=== PATIENT | female | born 1970 | race Caucasian/White ===

== ENCOUNTER 2016-10-07 11:56 | Emergency (ER) | payer OTHER ==
[2016-10-07 12:21] VITALS: BP 129/81
--- NOTE | 2016-10-07 13:03 | UC ---
Knee Pain HPI - HPI Summary HPI Summary: Pt presents with c/o left knee pain. Pt reports walking down stairs today, ~ 1 -2 hours prior to arrival, slipped fell and had left knee bent "so my heel hit my butt". Pt has history of ACL tear and repair ~ 10-15 years ago. Pt is able to bear minimal weight. - History of Current Complaint Chief Complaint: UCLowerExtremity Stated Complaint: LEFT KNEE PAIN Time Seen by Provider: 10/07/16 12:31 Hx Obtained From: Patient Hx Last Menstrual Period: now ?: No Onset/Duration: Sudden Onset Severity Initially: Moderate Severity Currently: Moderate Character: Dull, Aching Aggravating Factor(s): Movement, Weight Bearing Alleviating Factor(s): Rest, Position, Cold Associated Signs And Symptoms: Positive: Swelling Able to Bear Weight: Yes - minimal - Risk Factors Gout Risk Factor: Age ^ 40 - Allergies/Home Medications Allergies/Adverse Reactions: Allergies Allergy/AdvReac Type Severity Reaction Status Date / Time No Known Allergies Allergy Verified 10/07/16 12:24 Home Medications: Home Medications Ascorbic Acid TAB* [Vitamin C TAB*] 500 mg PO DAILY 10/07/16 [History Confirmed 10/07/16] PMH/Surg Hx/FS Hx/Imm Hx Previously Healthy: Yes - Surgical History Surgical History: Yes Surgery Procedure, Year, and Place: 03/2016-d/c. ACL repair left knee, 10-15 years ago - Family History Known Family History: Positive: Hypertension - Social History Alcohol Use: Occasionally Substance Use Type: None Smoking Status (MU): Former Smoker Review of Systems Constitutional: Negative Skin: Other - sunburned Eyes: Negative ENT: Negative Respiratory: Negative Cardiovascular: Negative Gastrointestinal: Negative Genitourinary: Negative Motor: Decreased ROM - left knee due to pain Neurovascular: Negative Musculoskeletal: Arthralgia, Decreased ROM - left knee, Myalgia Neurological: Negative Psychological: Negative All Other Systems Reviewed And Are Negative: Yes Physical Exam Triage Information Reviewed: Yes Appearance: Well-Appearing Vital Signs: Initial Vital Signs Temp 99.1 F 10/07/16 12:18 Pulse 96 10/07/16 12:18 Resp 14 10/07/16 12:18 BP 129/81 10/07/16 12:18 Pulse Ox 100 10/07/16 12:18 Eye Exam: Normal ENT Exam: Normal Respiratory Exam: Normal Musculoskeletal: Positive: Strength Limited @, ROM Limited @, Edema @ - left knee, negative drawer test, negative valgus and varus, Neurological Exam: Normal Psychological Exam: Normal Skin Exam: Normal Knee Pain Course/Dx - Course Course Of Treatment: I offered the pt a knee immobilizer, crutches, NSAIDS and all denied by pt. I discussed with the pt that I was referring her to Dr. Raygoza for further evaluation by an orthopedic provider and she agreed to plan of care and verbalized understanding. - Differential Dx/Diagnosis Differential Diagnosis/HQI/PQRI: Contusion, Sprain, Strain Provider Diagnoses: left knee sprain Discharge - Discharge Plan Condition: Stable Disposition: HOME Patient Education Materials: Knee Sprain (ED) Forms: *Work Release Referrals: Misael Raygoza MD [Medical Doctor] - Dottie Connor MD [Primary Care Provider] - Additional Instructions: Please follow up with Dr. Raygoza at [address] [place] [phone] for an appointment at 9:30 am on October 08, 2016
== END 2016-10-07 13:05 | disposition home or self-care (01) ==
LOC: UCCORT 11:56
DX: S83.92XA Sprain of unspecified site of left knee, initial encounter (principal); W10.9XXA Fall (on) (from) unspecified stairs and steps, initial encounter; Y93.9 Activity, unspecified; Y92.9 Unspecified place or not applicable; Z87.891 Personal history of nicotine dependence
CPT/HCPCS: 99211; G0463

== ENCOUNTER 2017-01-02 11:24 | Emergency (ER) | payer OTHER ==
[2017-01-02 11:33] VITALS: BP 125/69
--- NOTE | 2017-01-02 11:41 | UC ---
Ear Complaint HPI - HPI Summary HPI Summary: left ear feels clogged for 2 days - History of Current Complaint Chief Complaint: UCEar Stated Complaint: EAR PAIN Time Seen by Provider: 01/02/17 11:31 Hx Obtained From: Patient Hx Last Menstrual Period: 12/18/16 ?: No Onset/Duration: Gradual Onset, Lasting Days Severity Initially: Mild Severity Currently: Mild Pain Intensity: 2 Pain Scale Used: 0-10 Numeric Aggravating Factors: Nothing Alleviating Factors: Nothing - tried water and peroxide at home without relief Associated Signs/Symptoms: Positive: Hearing Loss - Allergies/Home Medications Allergies/Adverse Reactions: Allergies Allergy/AdvReac Type Severity Reaction Status Date / Time Bee Venom Allergy Anaphylatic Verified 01/02/17 11:34 Shock Home Medications: Home Medications Norgestimate-Eth Estradiol(NF) [Ortho Tri-Cyclen (NF)] 1 tab PO DAILY 01/02/17 [ History Confirmed 01/02/17] PMH/Surg Hx/FS Hx/Imm Hx Previously Healthy: Yes - Surgical History Surgical History: Yes Surgery Procedure, Year, and Place: 03/2016-d/c - Family History Known Family History: Positive: Hypertension - Social History Occupation: Employed Full-time Lives: With Family Alcohol Use: Occasionally Substance Use Type: None Smoking Status (MU): Former Smoker - Immunization History Most Recent Influenza Vaccination: 12/2016 Review of Systems Constitutional: Negative Skin: Negative Eyes: Negative ENT: Negative, Ear Ache - Left ear feels clogged Respiratory: Negative Cardiovascular: Negative Gastrointestinal: Negative Genitourinary: Negative Motor: Negative Neurovascular: Negative Musculoskeletal: Negative Neurological: Negative Psychological: Negative Is Patient Immunocompromised?: No All Other Systems Reviewed And Are Negative: Yes Physical Exam Triage Information Reviewed: Yes Appearance: Well-Appearing, No Pain Distress, Well-Nourished Vital Signs: Initial Vital Signs Temp 97.7 F 01/02/17 11:30 Pulse 77 01/02/17 11:30 Resp 16 01/02/17 11:30 BP 125/69 01/02/17 11:30 Pulse Ox 100 01/02/17 11:30 Vital Signs Reviewed: Yes Eye Exam: Normal Eyes: Positive: Conjunctiva Clear ENT Exam: Normal ENT: Positive: Normal ENT inspection, Hearing grossly normal, Pharynx normal, TMs normal - right, Other: - cerumen impaction left. Negative: Nasal congestion, Nasal drainage, Tonsillar swelling, Tonsillar exudate, Trismus, Muffled/hoarse voice Dental Exam: Normal Neck exam: Normal Neck: Positive: Supple, Nontender, No Lymphadenopathy Respiratory Exam: Normal Respiratory: Positive: Chest non-tender, No respiratory distress, No accessory muscle use Cardiovascular Exam: Normal Cardiovascular: Positive: RRR, Brisk Capillary Refill Musculoskeletal Exam: Normal Musculoskeletal: Positive: Strength Intact, ROM Intact, No Edema Neurological Exam: Normal Neurological: Positive: Alert, Fatigued Psychological Exam: Normal Skin Exam: Normal Re-Evaluation - Re-Evaluation First Eval Change: Improved - tm wnl impaction resolved feels better Ear Complaint Course/Dx - Course Course Of Treatment: avoid soap in ears, no q tips, follow with pcp prn - Differential Dx/Diagnosis Differential Diagnosis/HQI/PQRI: Cerumen Impaction, Otitis Externa, Otitis Media Provider Diagnoses: Left Cerumen impaction Discharge - Discharge Plan Condition: Stable Disposition: HOME Patient Education Materials: Cerumen Impaction (ED) Referrals: Dottie Connor MD [Primary Care Provider] - If Needed
== END 2017-01-02 12:23 | disposition home or self-care (01) ==
LOC: UCCORT 11:24
DX: H61.22 Impacted cerumen, left ear (principal); H60.92 Unspecified otitis externa, left ear; H66.92 Otitis media, unspecified, left ear; Z87.891 Personal history of nicotine dependence; Z91.030 Bee allergy status
CPT/HCPCS: 99212; G0463

== ENCOUNTER 2017-05-14 20:03 | Emergency (ER) | payer OTHER ==
--- OUTSIDE RECORDS SUMMARY | 2017-05-14 20:17 | XMS REPORT ---
:1970 Author Organization [facility] Address [address] [place] [address] Care Team Providers Name Role Phone America Gibson Unavailable Unavailable PROBLEMS Type Condition ICD9-CM [id number] Onset Condition SNOMED Code Code Code Dates Status Problem Cardiac I49.9 Active 183443106 arrhythmia, unspecified Problem Excessive and N92.0 Active 806184598 frequent menstruation with regular cycle Problem Lichen sclerosus L90.0 Active 23976002 et atrophicus Problem Abnormal uterine N93.9 Active [id number] and vaginal bleeding, unspecified Problem Leiomyoma of D25.9 Active 72978285 uterus, unspecified Problem Other specified N89.8 Active 20855910 noninflammatory disorders of vagina Problem Unspecified N83.201 Active [id number] ovarian cyst, right side Problem Other ovarian N83.292 Active [id number] cyst, left side ALLERGIES No Information ENCOUNTERS Encounter Location Date Diagnosis [facility] [address] Jul, OBGYN [place], [place] [id number] [facility] [address] May, [place] [id number] [facility] [address] May, [place] [id number] [facility] [address] Apr, [place] [id number] [facility] [address] Apr, [place] [id number] [facility] [address] Apr, Excessive and frequent OBGYN [facility], menstruation with regular [place] [id number] cycle N92.0 and Lichen sclerosus et atrophicus L90.0 [facility] [address] [place], Apr, [facility] [place] [id number] [place] [facility] [address] Apr, OBGYN [facility], [place] [id number] [place] [facility] [address] Apr, OBGYN [facility], [place] [id number] [place] [facility] [address] Mar, OBGYN [facility], [place] [id number] [place] [facility] [address] Mar, Lichen sclerosus et [facility]BGYN [facility], atrophicus L90.0 [place] [id number] [place] [facility] 103 Mar, Abnormal uterine and OBGYN [facility], vaginal bleeding, [place] [id number] unspecified N93.9 and Lichen sclerosus et atrophicus L90.0 [place] [facility] [address] Mar, OBGYN [facility], [place] [id number] [place] [facility] 103 Mar, Noninflammatory disorder OBGYN [facility], of vulva and perineum, [place] [id number] unspecified N90.9 and Excessive and frequent menstruation with regular cycle N92.0 [place] [facility] 103 Mar, Noninflammatory disorder OBGYN [facility], of vulva and perineum, [place] [id number] unspecified N90.9 [place] [facility] 103 Mar, Excessive and frequent OBGYN [facility], menstruation with regular [place] [id number] cycle N92.0 [place] [facility] 103 Mar, Excessive and frequent OBGYN [facility], menstruation with regular [place] [address] cycle N92.0 and Acute vulvitis N76.2 [place] [facility] [address] Feb, Abnormal uterine and OBGYN [facility], vaginal bleeding, [place] [id number] unspecified N93.9 [place] [facility] 103 Feb, Excessive and frequent OBGYN [facility], menstruation with regular [place] [id number] cycle N92.0 ; Leiomyoma of uterus, unspecified D25.9 and Other ovarian cyst, left side N83.292 [place] [facility] [address] Feb, Abnormal uterine and OBGYN [facility], vaginal bleeding, [place] [id number] unspecified N93.9 [place] [facility] 103 Feb, Excessive and frequent OBGYN [facility], menstruation with regular [place] [address] cycle N92.0 [place] [facility] [address] Feb, OBGYN [facility], [place] [id number] [place] [facility] [address] Feb, OBGYN [facility], [place] [id number] [place] [facility] [address] Feb, Abnormal uterine and OBGYN [facility], vaginal bleeding, [place] [id number] unspecified N93.9 ; Leiomyoma of uterus, unspecified D25.9 and Other ovarian cyst, left side N83.292 [place] [facility] [address] Feb, Other [facility] side N83.292 ; Leiomyoma [place] [id number] of uterus, unspecified D25.9 and Excessive and frequent menstruation with regular cycle N92.0 [place] [facility] [address] Jan, OBGYN [facility] [id number] [place] [facility] 103 Nov, Irregular menstruation, OBGYN [facility], unspecified N92.6 ; [place] [id number] Leiomyoma of uterus, unspecified D25.9 ; Other ovarian cyst, left side N83.292 and Unspecified ovarian cyst, right side N83.201 [facility] [address] Nov, Leiomyoma of uterus, OBGYN [facility], unspecified D25.9 and [place] [id number] Other ovarian cyst, left side N83.292 [facility] Oct, OBGYN [facility], [place] [id number] [facility] Oct, [facility]regular menstruation, [facility], unspecified N92.6 ; [place] [id number] Leiomyoma of uterus, unspecified D25.9 ; Abnormal findings on diagnostic imaging of other specified body structures R93.8 and Other ovarian cyst, left side N83.292 [facility] Oct, Leiomyoma of uterus, [facility], unspecified D25.9 ; [place] [id number] Abnormal findings on diagnostic imaging of other specified body structures R93.8 and Other ovarian cyst, left side N83.292 [facility] [address] Oct, [facility] [place] [id number] [facility] 103 Sep, [facility] [place] [id number] [facility] August, Irregular menstruation, [facility], unspecified N92.6 ; [place] [id number] Leiomyoma of uterus, unspecified D25.9 and Abnormal findings on diagnostic imaging of other specified body structures R93.8 [facility] [address] August, Irregular menstruation, [facility], unspecified N92.6 ; [place] [id number] Excessive and frequent menstruation with regular cycle N92.0 ; Ovarian cyst NOS 620.2 and Leiomyoma of uterus, unspecified D25.9 [place] [facility] 103 Jun, Excessive and frequent [facility], menstruation with regular [place] [id number] cycle N92.0 ; Other ovarian cyst, right side N83.291 ; Cardiac arrhythmia, unspecified I49.9 and Leiomyoma of uterus, unspecified D25.9 [place] [facility] [address] Jun, Irregular menstruation, [facility], unspecified N92.6 [place] [id number] [place] [facility] [address] Jun, [place] [id number] [place] [facility] [address] May, [place] [id number] [place] [facility] [address] May, [place]BG[place], [place] [id number] [place] [facility] [address] [place] [address] Apr, [address] [place], noninflammatory disorders [place] [id number] of vagina N89.8 [place] [facility] [address] Apr, [place]BG[place] [id number] [place] [facility] [address] [place] [address] Apr, Excessive and frequent [address]YN [address] [place], menstruation with regular [place] [id number] cycle N92.0 ; Other ovarian cyst, right side N83.291 and Cardiac arrhythmia, unspecified I49.9 [place] [facility] [address] Apr, Excessive and frequent OBGYN [facility], menstruation with regular [place] [id number] cycle N92.0 and Other ovarian cyst, right side N83.291 [place] [facility] [address] Mar, OBG[place], [place] [id number] [place] [facility] 103 Mar, Excessive and frequent OBGYN [facility], menstruation with regular [place] [id number] cycle N92.0 ; Other ovarian cyst, right side N83.291 and Cardiac arrhythmia, unspecified I49.9 [place] [facility] [address] Mar, OBG[place], [place] [id number] [place] [facility] [address] Mar, O[place] [id number] [place] [facility] [address] [place], Mar, [facility] [place] [id number] [place] [facility] [address] Mar, [place]BG[place] [id number] [place] [facility] 103 Mar, Excessive and frequent OBGYN [facility], menstruation with regular [place] [id number] cycle N92.0 and Other ovarian cyst, right side N83.291 [place] [facility] [address] Feb, [place]BG[place], [place] [id number] [place] [facility] 103 Feb, Excessive and frequent OBGYN [facility], menstruation with regular [place] [address] cycle N92.0 and Other ovarian cyst, right side N83.291 [place] [facility] [address] Feb, Irregular menstruation, OBGYN [facility], unspecified N92.6 ; Other [place] [id number] ovarian cyst, right side N83.291 and Abnormal findings on diagnostic imaging of other specified body structures R93.8 [place] [facility] 103 Feb, Acute vaginitis N76.0 OBG[place] [id number] [place] [facility] [address] Feb, Excessive and frequent OBGYN [facility], menstruation with regular [place] [address] cycle N92.0 and Acute vaginitis N76.0 [place] [facility] [address] Jan, [place] [id number] [place] [facility] 103 Dec, [place] [id number] [place] [facility] Dec, Excessive and frequent [address]YN [address] [place], menstruation with regular [place] [address] cycle N92.0 and Ovarian cyst NOS 620.2 [place] [facility] 103 Dec, Irregular menstruation, [facility], [facility] N92.6 [place] [id number] [place] [facility] 103 Dec, Irregular menstruation, OBGYN [facility], unspecified N92.6 [place] [id number] [facility] 103 Dec, Irregular menstruation, [facility], unspecified N92.6 [place] [id number] [facility] 103 Dec, Irregular menstruation, [facility], unspecified N92.6 and [place] [id number] Other ovarian cysts N83.29 [facility] Dec, [facility] [place] [id number] [facility] 103 Dec, Irregular menstruation, [facility], unspecified N92.6 [place] [id number] [facility] Oct, [place] [id number] [facility] 103 Sep, [place] [id number] [facility] 103 Sep, Irregular menstruation, [facility], unspecified N92.6 [place] [id number] IMMUNIZATIONS No Known Immunizations SOCIAL HISTORY Never Assessed REASON FOR REFERRAL FUNCTIONAL STATUS PLAN OF CARE VITAL SIGNS MEDICATIONS Unknown Medications PROCEDURES No Known procedures RESULTS No Results REASON FOR VISIT Tired/Drained from bleeding MEDICAL (GENERAL) HISTORY Type Description Date Medical History Migraines Surgical History Hysteroscopy/D&C 03-19-16 Surgical History Dx hysteroscopy, D&C 04/14/17 Hospitalization History Childbirth 1994 Hospitalization History childbirth 1996
[2017-05-14 20:44] VITALS: BP 116/79
[2017-05-14] MEDS ORDERED: Phenazopyridine TAB* 100 MG PO ONE ×2 (21:12→21:13)
[2017-05-14] MEDS ORDERED: Cephalexin CAP* 500 MG PO ONE ×2 (21:12→21:13)
--- NOTE | 2017-05-14 21:16 | UC ---
Pediatric GI/ HPI - HPI Summary HPI Summary: 47 yo female with 2 day hx of dysuria/urgency and frequency now with nausea mild abd pain and back pain no fever no vomiting no hx kidney stones - History Of Current Complaint Chief Complaint: UCGU Stated Complaint: URINARY - BACK AND ABDOMINAL PAIN Time Seen by Provider: 05/14/17 21:06 Hx Obtained From: Patient Onset/Duration: Gradual Onset, Lasting Days Severity Initially: Moderate Severity Currently: Moderate Pain Intensity: 5 Pain Scale Used: 0-10 Numeric Location: Associated Pain - bilater mid back pain and upper abd pain Aggravating Factor(s): Nothing - Allergies/Home Medications Allergies/Adverse Reactions: Allergies Allergy/AdvReac Type Severity Reaction Status Date / Time bee venom protein (honey bee) Allergy Anaphylatic Verified 05/14/17 20:28 Shock Home Medications: Home Medications Ibuprofen TAB* [Motrin TAB* 800 MG] 800 mg PO Q6H PRN 05/14/17 [History Confirmed 05/14/17] Megestrol TAB* [Megace TAB*] 40 mg PO BID 05/14/17 [History Confirmed 05/14/17] Past Medical History Previously Healthy: Yes Chronic Illness History: No: Diabetes - Family History Family History of Asthma: No Family History Of Seizure: No Review Of Systems Constitutional: Negative Eyes: Negative ENT: Negative Cardiovascular: Negative Respiratory: Negative Gastrointestinal: Other - nausea Genitourinary: Dysuria, Other - urgency/frequency Musculoskeletal: Negative Skin: Negative Neurological: Negative Psychological: Negative All Other Systems Reviewed And Are Negative: Yes Physical Exam Triage Information Reviewed: Yes Vital Signs: Initial Vital Signs Temp 99.3 F 05/14/17 20:31 Pulse 90 05/14/17 20:31 Resp 20 05/14/17 20:31 BP 116/79 05/14/17 20:31 Pulse Ox 100 05/14/17 20:31 Vital Signs Reviewed: Yes Appearance: Well-Appearing, No Pain Distress Eyes: Positive: Normal ENT: Positive: Hearing grossly normal. Negative: Nasal congestion, Nasal drainage, Muffled voice, Hoarse voice Respiratory: Positive: Lungs clear, Normal breath sounds, No respiratory distress, No accessory muscle use Cardiovascular: Positive: Normal, RRR, No Murmur Abdomen Description: Positive: Soft, CVA Tenderness (R) - mild, CVA Tenderness ( L) - mild. Negative: Nontender - mild tenderness both upper quadrents Bowel Sounds: Present Musculoskeletal: Positive: Normal Neurological: Positive: Normal Diagnostics - Laboratory Diagnostic Studies Completed/Ordered: UA- ++WBCs, +++RBCs + nitrite Pediatric GI Course/Dx - Differential Dx/Diagnosis Provider Diagnoses: mild pyelonephritis Discharge - Discharge Plan Condition: Stable Disposition: HOME Prescriptions: Cephalexin CAP* [Keflex CAP*] 500 mg PO BID #12 cap Phenazopyridine TAB* [Pyridium TAB*] 100 mg PO TID #6 tab Patient Education Materials: Kidney Infection (ED) Referrals: No Primary Care Phys,NOPCP [Primary Care Provider] - Additional Instructions: TO ER FOR WORSENING SYMPTOMS recheck here in 48 hours if not better
== END 2017-05-14 21:33 | disposition home or self-care (01) ==
LOC: UCCORT 20:03
DX: N12 Tubulo-interstitial nephritis, not specified as acute or chronic (principal); B96.20 Unspecified Escherichia coli [E. coli] as the cause of diseases classified elsewhere
CPT/HCPCS: 81003; 87077; 87086; 87186; 99213; A9270-GY; G0463

== ENCOUNTER 2017-09-20 16:21 | Emergency (ER) | payer OTHER ==
--- OUTSIDE RECORDS SUMMARY | 2017-09-20 16:40 | XMS REPORT ---
:1970 Author Organization [facility] Address [address] [place] [address] Care Team Providers Name Role Phone America Gibson Unavailable Unavailable PROBLEMS Type Condition ICD9-CM Code [id number] Onset Condition SNOMED Code Code Dates Status Problem Lichen sclerosus L90.0 Active 34332260 et atrophicus Problem Abnormal uterine N93.9 Active [id number] and vaginal bleeding, unspecified Problem Leiomyoma of D25.9 Active 62536257 uterus, unspecified Problem Cardiac I49.9 Active 188111990 arrhythmia, unspecified ALLERGIES No Information ENCOUNTERS Encounter Location Date Diagnosis [facility] [address] Sep, OBGYN [place], [place] [id number] [facility] [address] August, Excessive and frequent OBGYN [facility], menstruation with regular [place] [id number] cycle N92.0 [facility] [address] August, [place] [id number] [facility] [address] Jul, [place]BGYN [place], [place] [id number] [facility] [address] Jul, Excessive and frequent OBGYN [facility], menstruation with regular [place] [id number] cycle N92.0 and Leiomyoma of uterus, unspecified D25.9 [facility] Jul, [place]BG[place] [id number] [facility] May, Excessive and frequent OBGYN [facility], menstruation with regular [place] [id number] cycle N92.0 ; Lichen sclerosus et atrophicus L90.0 ; Other ovarian cyst, right side N83.291 and Leiomyoma of uterus, unspecified D25.9 [place] [facility] May, Abnormal uterine and OBGYN [facility], vaginal bleeding, [place] [id number] unspecified N93.9 and Leiomyoma of uterus, unspecified D25.9 [place] [facility] May, OBGYN [facility], [place] [id number] [place] [facility] Apr, [place] [id number] [facility] Apr, [place] [id number] [facility] Apr, Excessive and frequent OBGYN [facility], menstruation with regular [place] [id number] cycle N92.0 and Lichen sclerosus et atrophicus L90.0 [facility] [address] [place], Apr, [facility] [place] [id number] [facility] Apr, OBGYN [place], [place] [id number] [facility] Apr, [place] [id number] [place] [facility] Mar, OBGYN [facility], [place] [id number] [place] [facility] Mar, Lichen sclerosus et OBGYN [facility], atrophicus L90.0 [place] [id number] [place] [facility] Mar, Abnormal uterine and OBGYN [facility], vaginal bleeding, [place] [id number] unspecified N93.9 and Lichen sclerosus et atrophicus L90.0 [place] [facility] Mar, OBGYN [facility], [place] [id number] [place] [facility] Mar, [facility] of vulva and perineum, [place] [id number] unspecified N90.9 and Excessive and frequent menstruation with regular cycle N92.0 [place] [facility] Mar, Noninflammatory disorder OBGYN [facility], of vulva and perineum, [place] [id number] unspecified N90.9 [place] [facility] Mar, Excessive and frequent OBGYN [facility], menstruation with regular [place] [id number] cycle N92.0 [place] [facility] Mar, Excessive and frequent OBGYN [facility], menstruation with regular [place] [id number] cycle N92.0 and Acute vulvitis N76.2 [place] [facility] Feb, Abnormal uterine and OBGYN [facility], vaginal bleeding, [place] [id number] unspecified N93.9 [place] [facility] Feb, Excessive and frequent OBGYN [facility], menstruation with regular [place] [id number] cycle N92.0 ; Leiomyoma of uterus, unspecified D25.9 and Other ovarian cyst, left side N83.292 [place] [facility] Feb, Abnormal uterine and OBGYN [facility], vaginal bleeding, [place] [id number] unspecified N93.9 [place] [facility] Feb, Excessive and frequent OBGYN [facility], menstruation with regular [place] [id number] cycle N92.0 [place] [facility] Feb, OBGYN [facility], [place] [id number] [place] [facility] Feb, OBGYN [facility] [id number] [place] [facility] Feb, Abnormal uterine and OBGYN [facility], vaginal bleeding, [place] [id number] unspecified N93.9 ; Leiomyoma of uterus, unspecified D25.9 and Other ovarian cyst, left side N83.292 [facility] Feb, Other ovarian cyst, [facility] side N83.292 ; [place]omyoma [place] [id number] of uterus, unspecified D25.9 and Excessive and frequent menstruation with regular cycle N92.0 [facility] Jan, [facility] [place] [id number] [place] [facility] Nov, Irregular menstruation, [facility], unspecified N92.6 ; [place] [id number] Leiomyoma of uterus, unspecified D25.9 ; Other ovarian cyst, left side N83.292 and Unspecified ovarian cyst, right side N83.201 [place] [facility] Nov, Leiomyoma of uterus, [facility], unspecified D25.9 and [place] [id number] Other ovarian cyst, left side N83.292 [facility] Oct, [place] [id number] [facility] Oct, Irregular menstruation, [facility], unspecified N92.6 ; [place] [id number] Leiomyoma of uterus, unspecified D25.9 ; Abnormal findings on diagnostic imaging of other specified body structures R93.8 and Other ovarian cyst, left side N83.292 [facility] Oct, Leiomyoma of uterus, [facility], unspecified D25.9 ; [place] [id number] Abnormal findings on diagnostic imaging of other specified body structures R93.8 and Other ovarian cyst, left side N83.292 [facility] Oct, [place] [id number] [facility] Sep, [place] [id number] [facility] August, [facility]regular [facility]ation, [facility], unspecified N92.6 ; [place] [id number] Leiomyoma of uterus, unspecified D25.9 and Abnormal findings on diagnostic imaging of other specified body structures R93.8 [place] [facility] August, Irregular menstruation, OBGYN [facility], unspecified N92.6 ; [place] [id number] Excessive and frequent menstruation with regular cycle N92.0 ; Ovarian cyst NOS 620.2 and Leiomyoma of uterus, unspecified D25.9 [place] [facility] Jun, Excessive and frequent OBGYN [facility], menstruation with regular [place] [id number] cycle N92.0 ; Other ovarian cyst, right side N83.291 ; Cardiac arrhythmia, unspecified I49.9 and Leiomyoma of uterus, unspecified D25.9 [place] [facility] Jun, Irregular menstruation, OBGYN [facility], unspecified N92.6 [place] [id number] [place] [facility] Jun, [place], [place] [id number] [place] [facility] May, [place], [place] [id number] [place] [facility] May, OBG[place], [place] [id number] [place] [facility] [address] [facility] Apr, Other specified [address] [place], noninflammatory disorders [place] [id number] of vagina N89.8 [place] [facility] Apr, [place], [place] [id number] [place] [facility] [address] Apr, Excessive and frequent OBGYN [address] [place], menstruation with regular [place] [id number] cycle N92.0 ; Other ovarian cyst, right side N83.291 and Cardiac arrhythmia, unspecified I49.9 [place] [facility] Apr, Excessive and frequent OBGYN [facility], menstruation with regular [place] [id number] cycle N92.0 and Other ovarian cyst, right side N83.291 [place] [facility] Mar, O[place], [place] [id number] [place] [facility] Mar, Excessive and frequent OBGYN [facility], menstruation with regular [place] [id number] cycle N92.0 ; Other ovarian cyst, right side N83.291 and Cardiac arrhythmia, unspecified I49.9 [place] [facility] Mar, [place], [place] [id number] [place] [facility] Mar, O[place], [place] [id number] [facility] [address] [place], Mar, [facility] [place] [id number] [place] [facility] [address] Mar, [place] [id number] [facility] Mar, Excessive and frequent OBGYN [facility], menstruation with regular [place] [id number] cycle N92.0 and Other ovarian cyst, right side N83.291 [facility] Feb, [place], [place] [id number] [facility] Feb, Excessive and frequent OBGYN [facility], menstruation with regular [place] [id number] cycle N92.0 and Other ovarian cyst, right side N83.291 [place] [facility] Feb, Irregular menstruation, OBGYN [facility], unspecified N92.6 ; Other [place] [id number] ovarian cyst, right side N83.291 and Abnormal findings on diagnostic imaging of other specified body structures R93.8 [place] [facility] Feb, Acute vaginitis N76.0 OBG[place], [place] [id number] [place] [facility] Feb, Excessive and frequent OBGYN [facility], menstruation with regular [place] [id number] cycle N92.0 and Acute vaginitis N76.0 [place] [facility] Jan, [place], [place] [id number] [place] [facility] Dec, OBG[place], [place] [id number] [place] [facility] [address] [place] [address] Dec, [address]cessive and frequent [address] [place], menstruation with regular [place] [id number] cycle N92.0 and Ovarian cyst NOS 620.2 [place] [facility] Dec, Irregular menstruation, OBGYN [facility], unspecified N92.6 [place] [id number] [place] [facility] [address] Dec, Irregular menstruation, OBGYN [facility], unspecified N92.6 [place] [id number] [place] [facility] Dec, Irregular menstruation, OBGYN [facility], unspecified N92.6 [place] [id number] [place] [facility] Dec, Irregular menstruation, OBGYN [facility], unspecified N92.6 and [place] [id number] Other ovarian cysts N83.29 [place] [facility] Dec, [place], [place] [id number] [place] [facility] Dec, Irregular menstruation, OBGYN [facility], unspecified N92.6 [place] [id number] [place] [facility] Oct, [place], [place] [id number] [place] [facility] Sep, [place], [place] [id number] [place] [facility] Sep, Irregular menstruation, OBGYN [facility], unspecified N92.6 [place] [id number] IMMUNIZATIONS No Known Immunizations SOCIAL HISTORY Never Assessed REASON FOR REFERRAL FUNCTIONAL STATUS PLAN OF CARE VITAL SIGNS MEDICATIONS Medication Instructions Dosage Frequency Start Date End Date Duration Status megestrol 40 mg orally BID 1 tab(s) 12h 30 days Active PROCEDURES No Known procedures RESULTS No Results REASON FOR VISIT RX MEDICAL (GENERAL) HISTORY Type Description Date Medical History Migraines Surgical History Hysteroscopy/D&C 03-19-16 Surgical History Dx hysteroscopy, D&C 04/14/17 Hospitalization History Childbirth 1994 Hospitalization History childbirth 1996
[2017-09-20 17:00] VITALS: BP 123/82
--- NOTE | 2017-09-20 17:09 | UC ---
Throat Pain/Nasal Chip HPI - HPI Summary HPI Summary: 47 yo female with 3-4 day hx of severe nasal congestion/itchy watery eyes and post nasal drip sinus pressure no fever/chills - History of Current Complaint Chief Complaint: UCHeadache Stated Complaint: SINUSES Time Seen by Provider: 09/20/17 17:00 Hx Obtained From: Patient Hx Last Menstrual Period: last D&C 04/2017 Onset/Duration: Gradual Onset, Lasting Days Severity: Severe Pain Intensity: 10 Pain Scale Used: 0-10 Numeric Associated Signs & Symptoms: Positive: Sinus Discomfort, Nasal Discharge - Epiglottits Risk Factors Epiglottis Risk Factors: Negative - Allergies/Home Medications Allergies/Adverse Reactions: Allergies Allergy/AdvReac Type Severity Reaction Status Date / Time bee venom protein (honey bee) Allergy Anaphylatic Verified 05/14/17 20:28 Shock PMH/Surg Hx/FS Hx/Imm Hx Previously Healthy: Yes - Surgical History Surgical History: Yes Surgery Procedure, Year, and Place: 03/2016-d&c. 04/14/17--D&C. CERVICAL BX X 3 --03/2017 - Family History Known Family History: Positive: Hypertension - Social History Alcohol Use: Rare Substance Use Type: None Smoking Status (MU): Former Smoker When Did the Patient Quit Smoking/Using Tobacco: 1994 - Immunization History Most Recent Influenza Vaccination: 12/2016 Review of Systems Constitutional: Negative Skin: Negative Eyes: Negative ENT: Nasal Discharge, Sinus Congestion, Sinus Pain/Tenderness Respiratory: Negative Cardiovascular: Negative Gastrointestinal: Negative Genitourinary: Negative Motor: Negative Neurovascular: Negative Musculoskeletal: Negative Neurological: Headache Psychological: Negative Is Patient Immunocompromised?: No All Other Systems Reviewed And Are Negative: Yes Physical Exam Triage Information Reviewed: Yes Appearance: Well-Appearing, No Pain Distress, Well-Nourished Vital Signs: Initial Vital Signs Temp 98.1 F 09/20/17 16:54 Pulse 88 09/20/17 16:54 Resp 18 09/20/17 16:54 BP 123/82 09/20/17 16:54 Pulse Ox 100 09/20/17 16:54 Vital Signs Reviewed: Yes Eyes: Positive: Conjunctiva Clear ENT: Positive: Hearing grossly normal, Pharynx normal, Nasal congestion, Nasal drainage, TMs normal, Uvula midline. Negative: Tonsillar swelling, Tonsillar exudate, Trismus, Muffled voice, Hoarse voice, Dental tenderness, Sinus tenderness Neck: Positive: Supple, Nontender, No Lymphadenopathy Respiratory: Positive: Lungs clear, Normal breath sounds, No respiratory distress Cardiovascular: Positive: RRR, No Murmur Musculoskeletal: Positive: ROM Intact, No Edema Neurological: Positive: Alert, Muscle Tone Normal Psychological Exam: Normal Skin Exam: Normal Throat Pain/Nasal Course/Dx - Differential Dx/Diagnosis Provider Diagnoses: seasonal allergic rhinitis Discharge - Sign-Out/Discharge Documenting (check all that apply): Discharge/Admit/Transfer - Discharge Plan Condition: Stable Disposition: HOME Prescriptions: Fluticasone NASAL SPRAY 50MCG* [Flonase NASAL SPRAY 50MCG*] 2 spray BOTH NARES BID #1 btl Patient Education Materials: Allergic Rhinitis (ED) Referrals: Dottie Connor MD [Primary Care Provider] - 1 Week Additional Instructions: warm facial compresses AFRIN nasal spray (OTC) 2 sprays each nostril 3x day for 3 days only SALINE nasal spray 2 sprays each nostril twice daily sudafed in AM reyes in AM benadryl 50mg at bedtime - Billing Disposition and Condition Condition: STABLE Disposition: Home
== END 2017-09-20 17:17 | disposition home or self-care (01) ==
LOC: UCCORT 16:21
DX: J30.9 Allergic rhinitis, unspecified (principal)
CPT/HCPCS: 99212; G0463

== ENCOUNTER 2017-11-02 13:14 | Emergency (ER) | payer OTHER ==
--- OUTSIDE RECORDS SUMMARY | 2017-11-02 13:27 | XMS REPORT ---
:1970 Author Organization [facility] Address [address] [place] [address] Care Team Providers Name Role Phone America Gibson Unavailable Unavailable PROBLEMS Type Condition ICD9-CM Code [id number] Onset Condition SNOMED Code Code Dates Status Problem Lichen sclerosus L90.0 Active 67068275 et atrophicus Problem Abnormal uterine N93.9 Active [id number] and vaginal bleeding, unspecified Problem Leiomyoma of D25.9 Active 02065300 uterus, unspecified Problem Cardiac I49.9 Active [id number] arrhythmia, unspecified ALLERGIES No Information ENCOUNTERS Encounter Location Date Diagnosis [facility] [address] Dec, [place] [id number] [facility] [address] [place], Nov, [facility] [place] [id number] [facility] [address] Nov, [place] [id number] [facility] [address] Oct, [place] [id number] [facility] [address] Sep, [place] [id number] [facility] [address] Sep, Excessive and frequent OBGYN [facility], menstruation with regular [place] [id number] cycle N92.0 and Leiomyoma of uterus, unspecified D25.9 [facility] [address] Sep, [place] [id number] [facility] August, Excessive and frequent OBGYN [facility], menstruation with regular [place] [id number] cycle N92.0 [place] [facility] [address] August, [place] [id number] [place] [facility] [address] Jul, [place] [id number] [place] [facility] [address] Jul, Excessive and frequent OBGYN [facility], menstruation with regular [place] [id number] cycle N92.0 and Leiomyoma of uterus, unspecified D25.9 [place] [facility] [address] Jul, [place] [id number] [place] [facility] May, Excessive and frequent OBGYN [facility], menstruation with regular [place] [address] cycle N92.0 ; Lichen sclerosus et atrophicus L90.0 ; Other ovarian cyst, right side N83.291 and Leiomyoma of uterus, unspecified D25.9 [place] [facility] [address] May, Abnormal uterine and OBGYN [facility], vaginal bleeding, [place] [id number] unspecified N93.9 and Leiomyoma of uterus, unspecified D25.9 [place] [facility] [address] May, [place] [id number] [place] [facility] Apr, [place] [id number] [place] [facility] Apr, [place] [id number] [place] [facility] Apr, Excessive and frequent OBGYN [facility], menstruation with regular [place] [address] cycle N92.0 and Lichen sclerosus et atrophicus L90.0 [facility] [address] [place], Apr, Medical [facility] [id number] [place] [facility] Apr, [place] [id number] [place] [facility] [address] Apr, [place] [id number] [place] [facility] Mar, OBGYN [facility], [place] [id number] [place] [facility] Mar, Lichen sclerosus et OBGYN [facility], atrophicus L90.0 [place] [id number] [place] [facility] [address] Mar, Abnormal uterine and OBGYN [facility], vaginal bleeding, [place] [id number] unspecified N93.9 and Lichen sclerosus et atrophicus L90.0 [place] [facility] Mar, OBGYN [facility], [place] [id number] [place] [facility] Mar, Noninflammatory disorder OBGYN [facility], of vulva and perineum, [place] [id number] unspecified N90.9 and Excessive and frequent menstruation with regular cycle N92.0 [place] [facility] Mar, Noninflammatory disorder OBGYN [facility], of vulva and perineum, [place] [id number] unspecified N90.9 [place] [facility] Mar, Excessive and frequent OBGYN [facility], menstruation with regular [place] [id number] cycle N92.0 [place] [facility] Mar, Excessive and frequent OBGYN [facility], menstruation with regular [place] [address] cycle N92.0 and Acute vulvitis N76.2 [place] [facility] Feb, Abnormal uterine and OBGYN [facility], vaginal bleeding, [place] [id number] unspecified N93.9 [place] [facility] Feb, Excessive and frequent OBGYN [facility], menstruation with regular [place] [address] cycle N92.0 ; Leiomyoma of uterus, unspecified D25.9 and Other ovarian cyst, left side N83.292 [place] [facility] Feb, Abnormal uterine and OBGYN [facility], vaginal bleeding, [place] [id number] unspecified N93.9 [place] [facility] Feb, Excessive and frequent OBGYN [facility], menstruation with regular [place] [address] cycle N92.0 [place] [facility] [address] Feb, [place] [id number] [place] [facility] Feb, [place], [place] [id number] [place] [facility] Feb, Abnormal uterine and OBGYN [facility], vaginal bleeding, [place] [id number] unspecified N93.9 ; Leiomyoma of uterus, unspecified D25.9 and Other ovarian cyst, left side N83.292 [place] [facility] Feb, Other ovarian cyst, left OBGYN [facility], side N83.292 ; Leiomyoma [place] [id number] of uterus, unspecified D25.9 and Excessive and frequent menstruation with regular cycle N92.0 [place] [facility] Jan, OBGYN [facility], [place] [id number] [place] [facility] Nov, [facility]ation, [facility] unspecified N92.6 ; [place] [id number] Leiomyoma of uterus, unspecified D25.9 ; Other ovarian cyst, left side N83.292 and Unspecified ovarian cyst, right side N83.201 [place] [facility] Nov, [facility]oma of uterus, [facility], unspecified D25.9 and [place] [id number] Other ovarian cyst, left side N83.292 [place] [facility] Oct, OBGYN [facility], [place] [id number] [place] [facility] Oct, Irregular menstruation, [facility], unspecified N92.6 ; [place] [id number] Leiomyoma of uterus, unspecified D25.9 ; Abnormal findings on diagnostic imaging of other specified body structures R93.8 and Other ovarian cyst, left side N83.292 [facility] Oct, Leiomyoma of uterus, OBGYN [facility], unspecified D25.9 ; [place] [id number] Abnormal findings on diagnostic imaging of other specified body structures R93.8 and Other ovarian cyst, left side N83.[address] [address] [facility] Oct, [place] [id number] [facility] [address] Sep, [place] [id number] [facility] August, [facility]regular [facility]ation, [facility] unspecified N92.6 ; [place] [id number] Leiomyoma of uterus, unspecified D25.9 and Abnormal findings on diagnostic imaging of other specified body structures R93.[address] [facility] [address] August, [facility]regular menstruation, [facility], unspecified N92.6 ; [place] [id number] Excessive and frequent menstruation with regular cycle N92.0 ; Ovarian cyst NOS 620.2 and Leiomyoma of uterus, unspecified D25.9 [place] [facility] Jun, [facility], menstruation with regular [place] [id number] cycle N92.0 ; Other ovarian cyst, right side N83.291 ; Cardiac arrhythmia, unspecified I49.9 and Leiomyoma of uterus, unspecified D25.9 [place] [facility] [address] Jun, Irregular menstruation, [facility], unspecified N92.6 [place] [id number] [facility] Jun, [place] [id number] [facility] [address] May, [place] [id number] [place] [facility] [address] May, [place] [id number] [place] [facility] [address] [place] [address] Apr, [address] [place], noninflammatory disorders [place] [id number] of vagina N89.8 [place] [facility] [address] Apr, [place] [id number] [place] [address] [place] [address] Apr, Excessive and frequent [address]BGYN [address] [place], menstruation with regular [place] [address] cycle N92.0 ; Other ovarian cyst, right side N83.291 and Cardiac arrhythmia, unspecified I49.9 [place] [facility] [address] Apr, Excessive and frequent OBGYN [facility], menstruation with regular [place] [address] cycle N92.0 and Other ovarian cyst, right side N83.291 [place] [facility] Mar, [place] [id number] [place] [facility] Mar, Excessive and frequent OBGYN [facility], menstruation with regular [place] [address] cycle N92.0 ; Other ovarian cyst, right side N83.291 and Cardiac arrhythmia, unspecified I49.9 [place] [facility] [address] Mar, [place] [id number] [place] [facility] Mar, [place] [id number] [place] [facility] [address] [place], Mar, [place] [id number] [place] [facility] Mar, [place] [id number] [place] [facility] [address] Mar, Excessive and frequent OBGYN [facility], menstruation with regular [place] [address] cycle N92.0 and Other ovarian cyst, right side N83.291 [place] [facility] [address] Feb, [place] [id number] [place] [facility] Feb, Excessive and frequent OBGYN [facility], menstruation with regular [place] [address] cycle N92.0 and Other ovarian cyst, right side N83.291 [place] [facility] Feb, Irregular menstruation, OBGYN [facility], unspecified N92.6 ; Other [place] [address] ovarian cyst, right side N83.291 and Abnormal findings on diagnostic imaging of other specified body structures R93.8 [place] [facility] [address] Feb, Acute vaginitis N76.0 [place] [id number] [place] [facility] [address] Feb, Excessive and frequent OBGYN [facility], menstruation with regular [place] [address] cycle N92.0 and Acute vaginitis N76.0 [place] [facility] [address] Jan, [place] [id number] [place] [facility] [address] Dec, [place], [place] [id number] [place] [facility] [address] [place] [address] Dec, Excessive and frequent [address] [place], menstruation with regular [place] [address] cycle N92.0 and Ovarian cyst NOS 620.2 [place] [facility] [address] Dec, Irregular menstruation, OBGYN [facility], unspecified N92.6 [place] [id number] [place] [facility] [address] Dec, Irregular menstruation, OBGYN [facility], unspecified N92.6 [place] [id number] [place] [facility] [address] Dec, Irregular menstruation, OBGYN [facility], unspecified N92.6 [place] [id number] [place] [facility] [address] Dec, Irregular menstruation, OBGYN [facility], unspecified N92.6 and [place] [id number] Other ovarian cysts N83.29 [facility] [address] Dec, [place] [id number] [facility] [address] Dec, Irregular menstruation, OBGYN [facility], unspecified N92.6 [place] [id number] [facility] Oct, [place] [id number] [facility] [address] Sep, [place] [id number] [facility] [address] Sep, Irregular menstruation, [facility], unspecified N92.6 [place] [id number] IMMUNIZATIONS No Known Immunizations SOCIAL HISTORY Never Assessed REASON FOR REFERRAL FUNCTIONAL STATUS PLAN OF CARE VITAL SIGNS MEDICATIONS Unknown Medications PROCEDURES No Known procedures RESULTS No Results REASON FOR VISIT Bleeding MEDICAL (GENERAL) HISTORY Type Description Date Medical History Migraines Surgical History Hysteroscopy/D&C 03-19-16 Surgical History Dx hysteroscopy, D&C 04/14/17 Hospitalization History Childbirth 1994 Hospitalization History childbirth 1996
--- OUTSIDE RECORDS SUMMARY | 2017-11-02 13:27 | XMS REPORT ---
:1970 Author Organization [facility] Address [address] [place] [address] Care Team Providers Name Role Phone Isela Castle Unavailable Unavailable PROBLEMS Type Condition ICD9-CM Code [id number] Onset Condition SNOMED Code Code Dates Status Problem Lichen sclerosus L90.0 Active 54364942 et atrophicus Problem Abnormal uterine N93.9 Active [id number] and vaginal bleeding, unspecified Problem Leiomyoma of D25.9 Active 22534410 uterus, unspecified Problem Cardiac I49.9 Active 125244819 arrhythmia, unspecified ALLERGIES No Information ENCOUNTERS Encounter Location Date Diagnosis [facility] [address] Dec, OBGYN [place], [place] [id number] [facility] [address], Nov, Medical [facility] [id number] [facility] [address] Nov, OBGYN [place], [place] [id number] [facility] [address] Oct, Excessive and frequent OBGYN [facility], menstruation with regular [place] [id number] cycle N92.0 [facility] [address] Oct, OBGYN [place], [place] [id number] [facility] Oct, O[facility] [id number] [facility] Sep, OBG[place], [place] [id number] [facility] Sep, Excessive and frequent OBGYN [facility], menstruation with regular [place] [id number] cycle N92.0 and Leiomyoma of uterus, unspecified D25.9 [facility] Sep, OBGYN [place], [place] [id number] [place] [facility] August, Excessive and frequent OBGYN [facility], menstruation with regular [place] [id number] cycle N92.0 [place] [facility] [address] August, OBG[place] [id number] [facility] [place] [facility] Jul, OBG[place], [place] [id number] [place] [facility] Jul, Excessive and frequent OBGYN [facility], menstruation with regular [place] [id number] cycle N92.0 and Leiomyoma of uterus, unspecified D25.9 [place] [facility] [address] Jul, OBGYN [place], [place] [id number] [place] [facility] May, Excessive and frequent OBGYN [facility], menstruation with regular [place] [id number] cycle N92.0 ; Lichen sclerosus et atrophicus L90.0 ; Other ovarian cyst, right side N83.291 and Leiomyoma of uterus, unspecified D25.9 [facility] May, Abnormal uterine and OBGYN [facility], vaginal bleeding, [place] [id number] unspecified N93.9 and Leiomyoma of uterus, unspecified D25.9 [place] [facility] [address] May, OBGYN [place], [place] [id number] [place] [facility] [address] Apr, OBG[place], [place] [id number] [facility] [place] [facility] Apr, OBGYN [place], [place] [id number] [place] [facility] Apr, Excessive and frequent OBGYN [facility], menstruation with regular [place] [id number] cycle N92.0 and Lichen sclerosus et atrophicus L90.0 [facility] [address] [place], Apr, [facility] [place] [id number] [place] [facility] Apr, OBGYN [facility], [place] [id number] [place] [facility] [address] Apr, OBGYN [facility], [place] [id number] [place] [facility] Mar, OBGYN [facility], [place] [id number] [place] [facility] Mar, Lichen sclerosus et OBGYN [facility], atrophicus L90.0 [place] [id number] [place] [facility] [address] Mar, Abnormal uterine and OBGYN [facility], vaginal bleeding, [place] [id number] unspecified N93.9 and Lichen sclerosus et atrophicus L90.0 [place] [facility] Mar, OBGYN [facility], [place] [id number] [place] [facility] Mar, Noninflammatory disorder OBGYN [facility], of vulva and perineum, [place] [id number] unspecified N90.9 and Excessive and frequent menstruation with regular cycle N92.0 [place] [facility] Mar, Noninflammatory disorder OBGYN [facility], of vulva and perineum, [place] [id number] unspecified N90.9 [place] [facility] [address] Mar, Excessive and frequent OBGYN [facility], menstruation with regular [place] [id number] cycle N92.0 [place] [facility] [address] Mar, Excessive and frequent OBGYN [facility], menstruation with regular [place] [id number] cycle N92.0 and Acute vulvitis N76.2 [place] [facility] Feb, Abnormal uterine and OBGYN [facility], vaginal bleeding, [place] [id number] unspecified N93.9 [place] [facility] Feb, Excessive and frequent OBGYN [facility], menstruation with regular [place] [id number] cycle N92.0 ; Leiomyoma of uterus, unspecified D25.9 and Other ovarian cyst, left side N83.292 [place] [facility] Feb, Abnormal uterine and OBGYN [facility], vaginal bleeding, [place] [address] unspecified N93.9 [facility] Feb, Excessive and frequent OBGYN [facility], menstruation with regular [place] [address] cycle N92.0 [place] [facility] [address] Feb, OBGYN [facility], [place] [id number] [place] [facility] Feb, OBGYN [facility], [place] [id number] [place] [facility] [address] Feb, Abnormal uterine and OBGYN [facility], vaginal bleeding, [place] [id number] unspecified N93.9 ; Leiomyoma of uterus, unspecified D25.9 and Other ovarian cyst, left side N83.292 [place] [facility] Feb, [facility] N83.292 ; [place]omyoma [place] [id number] of uterus, unspecified D25.9 and Excessive and frequent menstruation with regular cycle N92.0 [place] [facility] Jan, OBGYN [facility], [place] [id number] [place] [facility] Nov, Irregular menstruation, OBGYN [facility], unspecified N92.6 ; [place] [id number] Leiomyoma of uterus, unspecified D25.9 ; Other ovarian cyst, left side N83.292 and Unspecified ovarian cyst, right side N83.201 [place] [facility] [address] Nov, Leiomyoma of uterus, OBGYN [facility], unspecified D25.9 and [place] [id number] Other ovarian cyst, left side N83.292 [facility] Oct, [facility] [place] [id number] [facility] Oct, [facility]ation, [facility], unspecified N92.6 ; [place] [id number] Leiomyoma of uterus, unspecified D25.9 ; Abnormal findings on diagnostic imaging of other specified body structures R93.8 and Other ovarian cyst, left side N83.[address] [facility] Oct, Le[facility]omyoma of uterus, [facility], unspecified D25.9 ; [place] [id number] Abnormal findings on diagnostic imaging of other specified body structures R93.8 and Other ovarian cyst, left side N83.292 [facility] Oct, [facility] [place] [id number] [facility] Sep, [facility] [place] [id number] [facility] August, Irregular menstruation, [facility], unspecified N92.6 ; [place] [id number] Leiomyoma of uterus, unspecified D25.9 and Abnormal findings on diagnostic imaging of other specified body structures R93.[address] [facility] [address] August, Irregular menstruation, [facility], unspecified N92.6 ; [place] [id number] Excessive and frequent menstruation with regular cycle N92.0 ; Ovarian cyst NOS 620.2 and Leiomyoma of uterus, unspecified D25.9 [place] [facility] Jun, [facility], menstruation with regular [place] [address] cycle N92.0 ; Other ovarian cyst, right side N83.291 ; Cardiac arrhythmia, unspecified I49.9 and Leiomyoma of uterus, unspecified D25.9 [place] [facility] [address] Jun, Irregular menstruation, [facility], unspecified N92.6 [place] [id number] [place] [facility] [address] Jun, OBG[place], [place] [id number] [place] [facility] [address] May, OBG[place], [place] [id number] [place] [facility] [address] May, OBGYN [place], [place] [id number] [place] [facility] [address] [facility] Apr, Other [address] [place], noninflammatory disorders [place] [id number] of vagina N89.8 [place] [facility] [address] Apr, OBG[place], [place] [id number] [place] [facility] [address] [place] [address] Apr, Excessive and frequent [address] [place], menstruation with regular [place] [id number] cycle N92.0 ; Other ovarian cyst, right side N83.291 and Cardiac arrhythmia, unspecified I49.9 [place] [facility] [address] Apr, Excessive and frequent OBGYN [facility], menstruation with regular [place] [id number] cycle N92.0 and Other ovarian cyst, right side N83.291 [place] [facility] [address] Mar, OBG[place], [place] [id number] [place] [facility] Mar, Excessive and frequent OBGYN [facility], menstruation with regular [place] [address] cycle N92.0 ; Other ovarian cyst, right side N83.291 and Cardiac arrhythmia, unspecified I49.9 [place] [facility] [address] Mar, [place]BG[place], [place] [id number] [place] [facility] Mar, OBG[place], [place] [id number] [place] [facility] [address] [place], Mar, [facility] [place] [id number] [place] [facility] Mar, OBGYN [place], [place] [id number] [place] [facility] [address] Mar, Excessive and frequent OBGYN [facility], menstruation with regular [place] [address] cycle N92.0 and Other ovarian cyst, right side N83.291 [place] [facility] Feb, OBG[place], [place] [id number] [place] [facility] [address] Feb, Excessive and frequent OBGYN [facility], menstruation with regular [place] [id number] cycle N92.0 and Other ovarian cyst, right side N83.291 [place] [facility] Feb, Irregular menstruation, OBGYN [facility], unspecified N92.6 ; Other [place] [address] ovarian cyst, right side N83.291 and Abnormal findings on diagnostic imaging of other specified body structures R93.8 [place] [facility] Feb, Acute vaginitis N76.0 OBG[place], [place] [id number] [place] [facility] [address] Feb, Excessive and frequent OBGYN [facility], menstruation with regular [place] [address] cycle N92.0 and Acute vaginitis N76.0 [place] [facility] [address] Jan, OBG[place], [place] [id number] [place] [facility] [address] Dec, OBGYN [place], [place] [id number] [place] [facility] Dec, Excessive and frequent [address] [place], menstruation with regular [place] [id number] cycle N92.0 and Ovarian cyst NOS 620.2 [place] [facility] [address] Dec, Irregular menstruation, OBGYN [facility], unspecified N92.6 [place] [id number] [place] [facility] [address] Dec, Irregular menstruation, OBGYN [facility], unspecified N92.6 [place] [id number] [facility] [address] Dec, Irregular menstruation, OBN [facility], unspecified N92.6 [place] [id number] [place] [facility] Dec, Irregular menstruation, [facility], unspecified N92.6 and [place] [id number] Other ovarian cysts N83.29 [facility] Dec, [facility] [place] [id number] [facility] [address] Dec, Irregular menstruation, [facility], unspecified N92.6 [place] [id number] [facility] Oct, [facility] [place] [id number] [facility] Sep, [place] [id number] [facility] [address] Sep, Irregular menstruation, [facility], unspecified N92.6 [place] [id number] IMMUNIZATIONS No Known Immunizations SOCIAL HISTORY Never Assessed REASON FOR REFERRAL FUNCTIONAL STATUS PLAN OF CARE VITAL SIGNS MEDICATIONS Medication Instructions Dosage Frequency Start Date End Date Duration Status megestrol 40 mg orally BID 1 tab(s) 12h 30 days Active PROCEDURES No Known procedures RESULTS No Results REASON FOR VISIT [facility] refill MEDICAL (GENERAL) HISTORY Type Description Date Medical History Migraines Surgical History Hysteroscopy/D&C 03-19-16 Surgical History Dx hysteroscopy, D&C 04/14/17 Hospitalization History Childbirth 1994 Hospitalization History childbirth 1996
--- OUTSIDE RECORDS SUMMARY | 2017-11-02 13:27 | XMS REPORT ---
:1970 Author Organization [facility] Address [address] [place] [address] Care Team Providers Name Role Phone America Gibson Unavailable Unavailable PROBLEMS Type Condition ICD9-CM Code [id number] Onset Condition SNOMED Code Code Dates Status Problem Lichen sclerosus L90.0 Active 57329456 et atrophicus Problem Abnormal uterine N93.9 Active [id number] and vaginal bleeding, unspecified Problem Leiomyoma of D25.9 Active 18155391 uterus, unspecified Problem Cardiac I49.9 Active 601328130 arrhythmia, unspecified ALLERGIES No Information ENCOUNTERS Encounter Location Date Diagnosis [facility] [address] Dec, OBGYN [place], [place] [id number] [facility] [address] [place], Nov, [place] [id number] [facility] [address] Nov, [place]BG[place] [id number] [facility] [address] Oct, [place] [id number] [facility] [address] Oct, OBGYN [place] [id number] [facility] [address] Sep, OBG[place], [place] [id number] [facility] Sep, Excessive and frequent OBGYN [facility], menstruation with regular [place] [id number] cycle N92.0 and Leiomyoma of uterus, unspecified D25.9 [facility] [address] Sep, OBGYN [place], [place] [id number] [facility] [address] August, Excessive and frequent OBGYN [facility], menstruation with regular [place] [id number] cycle N92.0 [place] [facility] [address] August, OBG[place] [id number] [place] [facility] Jul, OBG[place], [place] [id number] [place] [facility] Jul, Excessive and frequent OBGYN [facility], menstruation with regular [place] [id number] cycle N92.0 and Leiomyoma of uterus, unspecified D25.9 [place] [facility] [address] Jul, OBGYN [place], [place] [id number] [place] [facility] May, Excessive and frequent OBGYN [facility], menstruation with regular [place] [id number] cycle N92.0 ; Lichen sclerosus et atrophicus L90.0 ; Other ovarian cyst, right side N83.291 and Leiomyoma of uterus, unspecified D25.9 [place] [facility] [address] May, Abnormal uterine and OBGYN [facility], vaginal bleeding, [place] [id number] unspecified N93.9 and Leiomyoma of uterus, unspecified D25.9 [place] [facility] [address] May, OBG[place], [place] [id number] [place] [facility] [address] Apr, OBG[place], [place] [id number] [place] [facility] Apr, [place]BG[place], [place] [id number] [place] [facility] [address] Apr, Excessive and frequent OBGYN [facility], menstruation with regular [place] [id number] cycle N92.0 and Lichen sclerosus et atrophicus L90.0 [facility] [address] [place], Apr, [facility] [place] [id number] [place] [facility] Apr, [place]BG[place] [id number] [place] [facility] [address] Apr, OBG[facility], [place] [id number] [place] [facility] Mar, OBGYN [facility], [place] [id number] [place] [facility] Mar, Lichen sclerosus et OBGYN [facility], atrophicus L90.0 [place] [id number] [place] [facility] [address] Mar, Abnormal uterine and OBGYN [facility], vaginal bleeding, [place] [id number] unspecified N93.9 and Lichen sclerosus et atrophicus L90.0 [place] [facility] Mar, OBGYN [facility], [place] [id number] [place] [facility] Mar, Noninflammatory disorder OBGYN [facility], of vulva and perineum, [place] [id number] unspecified N90.9 and Excessive and frequent menstruation with regular cycle N92.0 [place] [facility] 103 Mar, Noninflammatory disorder OBGYN [facility], of vulva and perineum, [place] [id number] unspecified N90.9 [place] [facility] [address] Mar, Excessive and frequent OBGYN [facility], menstruation with regular [place] [id number] cycle N92.0 [place] [facility] Mar, Excessive and frequent OBGYN [facility], menstruation with regular [place] [address] cycle N92.0 and Acute vulvitis N76.2 [place] [facility] Feb, Abnormal uterine and OBGYN [facility], vaginal bleeding, [place] [id number] unspecified N93.9 [place] [facility] [address] Feb, Excessive and frequent OBGYN [facility], menstruation with regular [place] [id number] cycle N92.0 ; Leiomyoma of uterus, unspecified D25.9 and Other ovarian cyst, left side N83.292 [place] [facility] [address] Feb, Abnormal uterine and OBGYN [facility], vaginal bleeding, [place] [id number] unspecified N93.9 [place] [facility] [address] Feb, Excessive and frequent OBGYN [facility], menstruation with regular [place] [id number] cycle N92.0 [place] [facility] [address] Feb, OBGYN [facility], [place] [id number] [place] [facility] [address] Feb, OBG[place], [place] [id number] [place] [facility] [address] Feb, Abnormal uterine and OBGYN [facility], vaginal bleeding, [place] [id number] unspecified N93.9 ; Leiomyoma of uterus, unspecified D25.9 and Other ovarian cyst, left side N83.292 [place] [facility] Feb, Other ovarian cyst, left OBGYN [facility], side N83.292 ; Leiomyoma [place] [id number] of uterus, unspecified D25.9 and Excessive and frequent menstruation with regular cycle N92.0 [place] [facility] [address] Jan, OBGYN [place], [place] [id number] [place] [facility] Nov, Irregular menstruation, OBGYN [facility], unspecified N92.6 ; [place] [id number] Leiomyoma of uterus, unspecified D25.9 ; Other ovarian cyst, left side N83.292 and Unspecified ovarian cyst, right side N83.201 [place] [facility] Nov, [facility], [facility] unspecified D25.9 and [place] [id number] Other ovarian cyst, left side N83.292 [place] [facility] [address] Oct, [place] [id number] [facility] Oct, Irregular menstruation, [facility], unspecified N92.6 ; [place] [id number] Leiomyoma of uterus, unspecified D25.9 ; Abnormal findings on diagnostic imaging of other specified body structures R93.8 and Other ovarian cyst, left side N83.292 [facility] Oct, Leiomyoma of uterus, [facility], unspecified D25.9 ; [place] [id number] Abnormal findings on diagnostic imaging of other specified body structures R93.8 and Other ovarian cyst, left side N83.292 [facility] Oct, [place] [id number] [facility] Sep, [place] [id number] [facility] [address] August, Irregular menstruation, [facility], unspecified N92.6 ; [place] [id number] Leiomyoma of uterus, unspecified D25.9 and Abnormal findings on diagnostic imaging of other specified body structures R93.8 [facility] [address] August, Irregular menstruation, [facility], unspecified N92.6 ; [place] [id number] Excessive and frequent menstruation with regular cycle N92.0 ; Ovarian cyst NOS 620.2 and Leiomyoma of uterus, unspecified D25.9 [facility] [address] Jun, [facility] frequent [facility], menstruation with regular [place] [id number] cycle N92.0 ; Other ovarian cyst, right side N83.291 ; Cardiac arrhythmia, unspecified I49.9 and Leiomyoma of uterus, unspecified D25.9 [facility] Jun, Irregular menstruation, [facility], unspecified N92.6 [place] [id number] [facility] Jun, [place] [id number] [place] [facility] [address] May, O[place], [place] [id number] [place] [facility] [address] May, O[place], [place] [id number] [place] [facility] [address] [facility] Apr, Other [address] [place], noninflammatory disorders [place] [id number] of vagina N89.8 [place] [facility] [address] Apr, O[place], [place] [id number] [place] [facility] [address] [facility] Apr, Excessive and frequent OBGYN [address] [place], menstruation with regular [place] [id number] cycle N92.0 ; Other ovarian cyst, right side N83.291 and Cardiac arrhythmia, unspecified I49.9 [place] [facility] [address] Apr, Excessive and frequent OBGYN [facility], menstruation with regular [place] [id number] cycle N92.0 and Other ovarian cyst, right side N83.291 [place] [facility] [address] Mar, OBG[place], [place] [id number] [place] [facility] [address] Mar, Excessive and frequent OBGYN [facility], menstruation with regular [place] [address] cycle N92.0 ; Other ovarian cyst, right side N83.291 and Cardiac arrhythmia, unspecified I49.9 [place] [facility] [address] Mar, OBG[place], [place] [id number] [place] [facility] [address] Mar, [place] [id number] [facility] [facility] [address] [place], Mar, [place] [id number] [place] [facility] [address] Mar, OBG[place], [place] [id number] [place] [facility] [address] Mar, Excessive and frequent OBGYN [facility], menstruation with regular [place] [address] cycle N92.0 and Other ovarian cyst, right side N83.291 [place] [facility] Feb, [place], [place] [id number] [place] [facility] [address] Feb, Excessive and frequent OBGYN [facility], menstruation with regular [place] [id number] cycle N92.0 and Other ovarian cyst, right side N83.291 [place] [facility] [address] Feb, Irregular menstruation, OBGYN [facility], unspecified N92.6 ; Other [place] [address] ovarian cyst, right side N83.291 and Abnormal findings on diagnostic imaging of other specified body structures R93.8 [place] [facility] [address] Feb, Acute vaginitis N76.0 [place], [place] [id number] [facility] Feb, Excessive and frequent OBGYN [facility], menstruation with regular [place] [id number] cycle N92.0 and Acute vaginitis N76.0 [place] [facility] [address] Jan, [place], [place] [id number] [place] [facility] [address] Dec, [place] [id number] [facility] Dec, Excessive and frequent [address]YN [address] [place], menstruation with regular [place] [address] cycle N92.0 and Ovarian cyst NOS 620.2 [place] [facility] [address] Dec, Irregular menstruation, OBGYN [facility], unspecified N92.6 [place] [id number] [place] [facility] [address] Dec, Irregular menstruation, OBGYN [facility], unspecified N92.6 [place] [id number] [place] [facility] [address] Dec, Irregular menstruation, OBGYN [facility], unspecified N92.6 [place] [id number] [facility] [address] Dec, Irregular menstruation, [facility], unspecified N92.6 and [place] [id number] Other ovarian cysts N83.29 [facility] [address] Dec, [place] [id number] [facility] Dec, Irregular menstruation, [facility], unspecified N92.6 [place] [id number] [facility] Oct, [place] [id number] [facility] Sep, [place] [id number] [facility] Sep, Irregular menstruation, [facility], unspecified N92.6 [place] [id number] IMMUNIZATIONS No Known Immunizations SOCIAL HISTORY Never Assessed REASON FOR REFERRAL FUNCTIONAL STATUS PLAN OF CARE VITAL SIGNS MEDICATIONS Unknown Medications PROCEDURES No Known procedures RESULTS No Results REASON FOR VISIT headaches MEDICAL (GENERAL) HISTORY Type Description Date Medical History Migraines Surgical History Hysteroscopy/D&C 03-19-16 Surgical History Dx hysteroscopy, D&C 04/14/17 Hospitalization History Childbirth 1994 Hospitalization History childbirth 1996
[2017-11-02 13:34] VITALS: BP 135/76
--- NOTE | 2017-11-02 13:53 | UC ---
Complaint Female HPI - HPI Summary HPI Summary: dysuria x 2 days + urinary frequency , urgency , no fever, no chills, no flank pain , no abdominal pain small circular rash right mid abdominal area not itchy , no pain or redness - History Of Current Complaint Chief Complaint: UCGU Stated Complaint: URINARY COMPLAINT Time Seen by Provider: 11/02/17 13:25 Hx Obtained From: Patient Hx Last Menstrual Period: last D&C 04/2017 Onset/Duration: Gradual Onset, Lasting Days - 2, Still Present Timing: Constant Severity Initially: Moderate Severity Currently: Moderate Pain Intensity: 5 Character: Burning Aggravating Factor(s): Urination Alleviating Factor(s): Nothing Associated Signs And Symptoms: Negative: Fever, Back Pain, Vaginal Bleeding/ Discharge, Vaginal Discharge, Nausea, Vomiting(# Of Episodes =), Genital Swelling, Genital Blisters, Retained Foregin Body (Specify) - Allergies/Home Medications Allergies/Adverse Reactions: Allergies Allergy/AdvReac Type Severity Reaction Status Date / Time bee venom protein (honey bee) Allergy Anaphylatic Verified 11/02/17 13:31 Shock PMH/Surg Hx/FS Hx/Imm Hx Previously Healthy: Yes - Surgical History Surgical History: Yes Surgery Procedure, Year, and Place: 03/2016-d&c. 04/14/17--D&C. CERVICAL BX X 3 --03/2017 - Family History Known Family History: Positive: Hypertension - Social History Alcohol Use: Rare Substance Use Type: None Smoking Status (MU): Former Smoker When Did the Patient Quit Smoking/Using Tobacco: 1994 - Immunization History Most Recent Influenza Vaccination: 12/2016 Review of Systems Constitutional: Negative Skin: Rash Eyes: Negative ENT: Negative Respiratory: Negative Cardiovascular: Negative Gastrointestinal: Negative Genitourinary: Dysuria, Frequency, Urgency Is Patient Immunocompromised?: No All Other Systems Reviewed And Are Negative: Yes Physical Exam Triage Information Reviewed: Yes Appearance: Well-Appearing, No Pain Distress, Well-Nourished Vital Signs: Initial Vital Signs Temp 99.0 F 11/02/17 13:26 Pulse 102 11/02/17 13:26 Resp 17 11/02/17 13:26 BP 135/76 11/02/17 13:26 Pulse Ox 100 11/02/17 13:26 Vital Signs Reviewed: Yes Eye Exam: Normal Eyes: Positive: Conjunctiva Clear ENT: Positive: Normal ENT inspection, Hearing grossly normal, Pharynx normal Neck exam: Normal Neck: Positive: Supple, Nontender, No Lymphadenopathy Respiratory: Positive: Chest non-tender, Lungs clear, Normal breath sounds Cardiovascular: Positive: RRR, No Murmur, Pulses Normal Abdomen Description: Positive: Nontender, Soft. Negative: CVA Tenderness (R), CVA Tenderness (L), Distended, Guarding Skin: Positive: rashes - macular rash right mid abd , circular 1 cm in diameter with raised boreder , no tenderness, Complaint Female Dx - Differential Dx/Diagnosis Provider Diagnoses: 1. UTI. 2. ringwarm Discharge - Sign-Out/Discharge Documenting (check all that apply): Patient Departure - Discharge Plan Condition: Stable Disposition: HOME Prescriptions: Ketoconazole 2 % CREAM (NF) [Nizoral 2% CREAM (NF)] 1 applic TOPICAL BID #60 gm Sulfamethox/Trimethoprim DS* [Bactrim DS 800/160 TAB*] 1 tab PO BID #14 tab Patient Education Materials: Urinary Tract Infection in Women (DC), Tinea Corporis (ED) Referrals: Dottie Connor MD [Primary Care Provider] - If Needed - Billing Disposition and Condition Condition: STABLE Disposition: Home
== END 2017-11-02 13:55 | disposition home or self-care (01) ==
LOC: UCCORT 13:14
DX: N39.0 Urinary tract infection, site not specified (principal); B35.4 Tinea corporis; Z91.030 Bee allergy status; Z87.891 Personal history of nicotine dependence
CPT/HCPCS: 81003; 87077; 87086; 87186; 99212; G0463

== ENCOUNTER 2018-01-04 16:15 | Emergency (ER) | payer OTHER ==
--- OUTSIDE RECORDS SUMMARY | 2018-01-04 17:08 | XMS REPORT ---
:1970 Author Organization [facility] Address [address] [place] [address] Care Team Providers Name Role Phone America Gibson Unavailable Unavailable PROBLEMS Type Condition ICD9-CM Code [id number] Onset Condition SNOMED Code Code Dates Status Problem Lichen sclerosus L90.0 Active 42899165 et atrophicus Problem Abnormal uterine N93.9 Active [id number] and vaginal bleeding, unspecified Problem Leiomyoma of D25.9 Active 89959205 uterus, unspecified Problem Cardiac I49.9 Active 158304381 arrhythmia, unspecified ALLERGIES Substance Reaction Event Type Date Status Prometrium dizziness Drug Allergy Dec, Active ENCOUNTERS Encounter Location Date Diagnosis [facility] 103 Jan, OBGYN [place] [id number] [facility] Dec, Excessive and frequent OBGYN [facility], menstruation with regular [place] [id number] cycle N92.0 ; Leiomyoma of uterus, unspecified D25.9 and Abnormal uterine and vaginal bleeding, unspecified N93.9 [facility] 103 Nov, Urinary tract infection, OBGYN [facility], site not specified N39.0 [place] [id number] [facility] [address] [place], Nov, Medical [place] [id number] [facility] 103 Nov, Excessive and frequent OBGYN [facility], menstruation with regular [place] [id number] cycle N92.0 ; Leiomyoma of uterus, unspecified D25.9 and Abnormal uterine and vaginal bleeding, unspecified N93.9 [facility] 103 Nov, Excessive and frequent OBGYN [facility], menstruation with regular [place] [address] cycle N92.0 ; Leiomyoma of uterus, unspecified D25.9 and Abnormal uterine and vaginal bleeding, unspecified N93.9 [facility] 103 Nov, Leiomyoma of uterus, OBGYN [facility], unspecified D25.9 and [place] [id number] Abnormal uterine and vaginal bleeding, unspecified N93.9 [facility] 103 Oct, OBGYN [place], [place] [id number] [facility] 103 Oct, OBGYN [place], [place] [id number] [facility] 103 Oct, Excessive and frequent OBGYN [facility], menstruation with regular [place] [address] cycle N92.0 [facility] 103 Oct, OBGYN [place], [place] [id number] [facility] 103 Oct, OBGYN [place] [id number] [facility] 103 Sep, OBGYN [place] [id number] [facility] 103 Sep, Excessive and frequent OBGYN [facility], menstruation with regular [place] [address] cycle N92.0 and Leiomyoma of uterus, unspecified D25.9 [facility] 103 Sep, OBGYN [place], [place] [id number] [facility] 103 August, Excessive and frequent OBGYN [facility], menstruation with regular [place] [address] cycle N92.0 [facility] [facility] 103 August, [place]BGYN [place] [id number] [facility] 103 Jul, OBGYN [place] [id number] [facility] 103 Jul, Excessive and frequent OBGYN [facility], menstruation with regular [place] [address] cycle N92.0 and Leiomyoma of uterus, unspecified D25.9 [facility] 103 Jul, OBGYN [place], [place] [id number] [facility] 103 May, Excessive and frequent OBGYN [facility], menstruation with regular [place] [address]286[address] cycle N92.0 ; Lichen sclerosus et atrophicus L90.0 ; Other ovarian cyst, right side N83.291 and Leiomyoma of uterus, unspecified D25.9 [facility] 103 May, Abnormal uterine and OBGYN [facility], vaginal bleeding, [place] [address] unspecified N93.9 and Leiomyoma of uterus, unspecified D25.9 [facility] 103 May, OBGYN [place], [place] [id number] [facility] 103 Apr, OBGYN [place], [place] [id number] [facility] 103 Apr, OBGYN [place], [place] [id number] [facility] 103 Apr, Excessive and frequent OBGYN [facility], menstruation with regular [place] [address]12[address] cycle N92.0 and Lichen sclerosus et atrophicus L90.0 [facility] [address] [place], Apr, Medical Center [place] [id number] [facility] 103 Apr, OBGYN [place], [place] [id number] [facility] 103 04 Thien, 2018 OBGYN [facility], [place] [id number] [facility] 103 Mar, OBGYN [facility], [place] [id number] [facility] 103 Mar, Lichen sclerosus et OBGYN [facility], atrophicus L90.0 [place] [id number] [facility] 103 Mar, Abnormal uterine and OBGYN [facility], vaginal bleeding, [place] [id number] unspecified N93.9 and Lichen sclerosus et atrophicus L90.0 [facility] 103 Mar, OBGYN [facility], [place] [id number] [facility] 103 Mar, Noninflammatory disorder OBGYN [facility], of vulva and perineum, [place] [id number] unspecified N90.9 and Excessive and frequent menstruation with regular cycle N92.0 [facility] 103 Mar, Noninflammatory disorder OBGYN [facility], of vulva and perineum, [place] [address] unspecified N90.9 [facility] 103 Mar, Excessive and frequent OBGYN [facility], menstruation with regular [place] [address] cycle N92.0 [facility] 103 Mar, Excessive and frequent OBGYN [facility], menstruation with regular [place] 208[address] cycle N92.0 and Acute vulvitis N76.2 [facility] 103 Feb, Abnormal uterine and OBGYN [facility], vaginal bleeding, [place] [id number] unspecified N93.9 [facility] 103 Feb, Excessive and frequent OBGYN [facility], menstruation with regular [place] [address] cycle N92.0 ; Leiomyoma of uterus, unspecified D25.9 and Other ovarian cyst, left side N83.292 [facility] 103 Feb, Abnormal uterine and OBGYN [facility], vaginal bleeding, [place] [id number] unspecified N93.9 [facility] 103 Feb, Excessive and frequent OBGYN [facility], menstruation with regular [place] 288[address]142 cycle N92.0 [facility] 103 Feb, OBGYN [facility], [place] [id number] [facility] 103 Feb, OBGYN [facility], [place] [id number] [facility] 103 Feb, Abnormal uterine and OBGYN [facility], vaginal bleeding, [place] [address] unspecified N93.9 ; Leiomyoma of uterus, unspecified D25.9 and Other ovarian cyst, left side N83.292 [facility] 103 Feb, Other ovarian cyst, left OBGYN [facility], side N83.292 ; Leiomyoma [place] 691888310 of uterus, unspecified D25.9 and Excessive and frequent menstruation with regular cycle N92.0 [facility] 103 Jan, OBG[place] [id number] [facility] 103 Nov, Irregular menstruation, OBGYN [facility], unspecified N92.6 ; [place] [id number] Leiomyoma of uterus, unspecified D25.9 ; Other ovarian cyst, left side N83.292 and Unspecified ovarian cyst, right side N83.201 [facility] [facility] 103 Nov, Leiomyoma of uterus, OBGYN [facility], unspecified D25.9 and [place] [id number] Other ovarian cyst, left side N83.292 [facility] 103 Oct, OBGYN [place], [place] [id number] [facility] 103 Oct, Irregular menstruation, OBGYN [facility], unspecified N92.6 ; [place] [id number] Leiomyoma of uterus, unspecified D25.9 ; Abnormal findings on diagnostic imaging of other specified body structures R93.8 and Other ovarian cyst, left side N83.292 [facility] 103 Oct, Leiomyoma of uterus, OBGYN [facility], unspecified D25.9 ; [place] [id number] Abnormal findings on diagnostic imaging of other specified body structures R93.8 and Other ovarian cyst, left side N83.292 [facility] 103 Oct, OBGYN [facility], [place] [id number] [facility] 103 Sep, [facility] [place] [id number] [facility] 103 August, [facility] unspecified N92.6 ; [place] [address] Leiomyoma of uterus, unspecified D25.9 and Abnormal findings on diagnostic imaging of other specified body structures R93.8 [facility] 103 August, [facility]ation[facility] unspecified N92.6 ; [place] [address] Excessive and frequent menstruation with regular cycle N92.0 ; Ovarian cyst NOS 620.2 and Leiomyoma of uterus, unspecified D25.9 [facility] 103 Jun, [facility] menstruation with regular [place] [address] cycle N92.0 ; Other ovarian cyst, right side N83.291 ; Cardiac arrhythmia, unspecified I49.9 and Leiomyoma of uterus, unspecified D25.9 [facility] [facility] 103 Jun, [facility]regular [facility]ation, [facility] unspecified N92.6 [place] [id number] [facility] 103 Jun, OBGYN [facility], [place] [id number] [facility] 103 May, OBGYN [place], [place] [id number] [facility] 103 May, OBG[place], [place] [id number] [facility] [address] Apr, Other [address] [facility], noninflammatory disorders [place] [address] of vagina N89.8 [place] [facility] 103 Apr, OBG[place], [place] [id number] [facility] [address] [facility] Apr, Excessive and frequent OBGYN [address] [facility], menstruation with regular [place] [address] cycle N92.0 ; Other ovarian cyst, right side N83.291 and Cardiac arrhythmia, unspecified I49.9 [place] [facility] 103 Apr, Excessive and frequent OBGYN [facility], menstruation with regular [place] [address]26 cycle N92.0 and Other ovarian cyst, right side N83.291 [facility] 103 Mar, OBGYN [place], [place] [id number] [facility] 103 Mar, Excessive and frequent OBGYN [facility], menstruation with regular [place] 324348298 cycle N92.0 ; Other ovarian cyst, right side N83.291 and Cardiac arrhythmia, unspecified I49.9 [facility] 103 Mar, OBG[place], [place] [id number] [facility] 103 Mar, OBGYN [place], [place] [id number] [facility] [address] [place], Mar, [facility] [id number] [place] [facility] 103 Mar, OBGYN [place], [place] [id number] [facility] 103 Mar, Excessive and frequent OBGYN [facility], menstruation with regular [place] 476986644 cycle N92.0 and Other ovarian cyst, right side N83.291 [facility] 103 Feb, OBGYN [place], [place] [id number] [facility] 103 Feb, Excessive and frequent OBGYN [facility], menstruation with regular [place] [address]19481211 cycle N92.0 and Other ovarian cyst, right side N83.291 [place] [facility] 103 Feb, Irregular menstruation, OBGYN [facility], unspecified N92.6 ; Other [place] [address] ovarian cyst, right side N83.291 and Abnormal findings on diagnostic imaging of other specified body structures R93.8 [facility] 103 Feb, Acute vaginitis N76.0 OBGYN [place], [place] [id number] [facility] 103 Feb, Excessive and frequent OBGYN [facility], menstruation with regular [place] [address] cycle N92.0 and Acute vaginitis N76.0 [facility] 103 Jan, OBG[place], [place] [id number] [facility] 103 Dec, OBG[place], [place] [id number] [facility] [address] [place] [address] Dec, Excessive and frequent [address]BGYN [address] [facility], menstruation with regular [place] 012250852 cycle N92.0 and Ovarian cyst NOS 620.2 [facility] 103 Dec, Irregular menstruation, OBGYN [facility], unspecified N92.6 [place] [id number] [facility] 103 Dec, Irregular menstruation, OBGYN [facility], unspecified N92.6 [place] [id number] [facility] [facility] 103 Dec, Irregular menstruation, OBGYN [facility], unspecified N92.6 [place] [id number] [facility] 103 Dec, Irregular menstruation, OBGYN [facility], unspecified N92.6 and [place] [id number] Other ovarian cysts N83.29 [facility] 103 Dec, OBG[place], [place] [id number] [facility] 103 Dec, Irregular menstruation, OBGYN [facility], unspecified N92.6 [place] [id number] [facility] 103 Oct, OBG[place], [place] [id number] [facility] 103 Sep, OBGYN [place], [place] [id number] [facility] 103 Sep, Irregular menstruation, OBGYN [facility], unspecified N92.6 [place] [id number] IMMUNIZATIONS No Known Immunizations SOCIAL HISTORY Never Assessed REASON FOR REFERRAL FUNCTIONAL STATUS PLAN OF CARE Activity Details Follow Up f/u 1 mo to assess vag cuff. RTW tomorrow w/ 20 lb lifting restriction x 8 weeks Reason: VITAL SIGNS Height 60 in 2017-12-13 Weight 169 lbs 2017-12-13 BMI 33.00 kg/m2 2017-12-13 Blood pressure systolic 126 mm Hg 2017-12-13 Blood pressure diastolic 70 mm Hg 2017-12-13 MEDICATIONS Unknown Medications PROCEDURES No Known procedures RESULTS No Results REASON FOR VISIT post op Insurance Providers [facility] Member Patient Patient Patient Patient Patient Subscriber Subscriber Subscriber Group Insurance Plan Plan Plan Plan ID Relationship Address Phone Name Date of ID Name Date of No Type Insurance Insurance Insurance Coverage to Subscriber Address Phone Name Dates [employer] [phone] [employer] self [place] [id number] Blue [id number] Cross/Blue [place] Cross/Blue Shield [id number] Shield Medicaid [phone] Medicaid self [place] [id number] [facility] [address] [address] [phone] [place] self [place] [id number] [address] [address] MEDICAL (GENERAL) HISTORY Type Description Date Medical History Migraines Surgical History Hysteroscopy/D&C 03-19-16 Surgical History Dx hysteroscopy, D&C 04/14/17 Surgical History TLH/BS/cysto. 11/23/17 Hospitalization History Childbirth 1994 Hospitalization History childbirth 1996
[2018-01-04 17:15] VITALS: BP 145/97
--- NOTE | 2018-01-04 17:53 | UC ---
UC General HPI - HPI Summary HPI Summary: pt presents for evaluation of her cough and head pressure. she states she has been this way for 1-2 days. 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 she denies any fever. she has had a few chills. - History of Current Complaint Chief Complaint: UCGeneralIllness Stated Complaint: COUGH Hx Obtained From: Patient Hx Last Menstrual Period: last D&C 04/2017 Timing: Constant Onset Severity: Mild Current Severity: Mild Pain Intensity: 0 - Allergy/Home Medications Allergies/Adverse Reactions: Allergies Allergy/AdvReac Type Severity Reaction Status Date / Time bee venom protein (honey bee) Allergy Anaphylatic Verified 01/04/18 17:15 Shock Home Medications: Home Medications Ferrous Sulfate TAB* 325 mg PO DAILY 01/04/18 [History Confirmed 01/04/18] Ketoconazole 2 % CREAM (NF) [Nizoral 2% CREAM (NF)] 1 applic TOPICAL BID PRN 05/23 [History Confirmed 01/04/18] PMH/Surg Hx/FS Hx/Imm Hx Previously Healthy: Yes - Surgical History Surgical History: Yes Surgery Procedure, Year, and Place: 03/2016-d&c. 04/14/17--D&C. CERVICAL BX X 3 --03/2017. hysterectomy 11/2017 - Family History Known Family History: Positive: Hypertension - Social History Alcohol Use: Rare Substance Use Type: None Smoking Status (MU): Former Smoker When Did the Patient Quit Smoking/Using Tobacco: 1994 - Immunization History Most Recent Influenza Vaccination: 12/2016 Review of Systems Constitutional: Chills Skin: Negative Eyes: Negative ENT: Sinus Congestion Respiratory: Cough - mild occasional Gastrointestinal: Negative Genitourinary: Negative Motor: Negative Neurovascular: Negative Musculoskeletal: Negative Neurological: Headache - mild Is Patient Immunocompromised?: No All Other Systems Reviewed And Are Negative: No Physical Exam Triage Information Reviewed: Yes Appearance: Well-Appearing, No Pain Distress, Well-Nourished Vital Signs: Initial Vital Signs Temp 97.3 F 01/04/18 17:09 Pulse 105 01/04/18 17:09 Resp 17 01/04/18 17:09 BP 145/97 01/04/18 17:09 Pulse Ox 97 01/04/18 17:09 Vital Signs Reviewed: Yes Eye Exam: Normal Eyes: Positive: Conjunctiva Clear ENT Exam: Normal ENT: Positive: Normal ENT inspection, Hearing grossly normal, Pharyngeal erythema - mild Dental Exam: Normal Neck exam: Normal Neck: Positive: Supple, Nontender Respiratory Exam: Normal Respiratory: Positive: Chest non-tender, Lungs clear, Normal breath sounds Cardiovascular Exam: Normal Abdominal Exam: Normal Bowel Sounds: Positive: Present Musculoskeletal Exam: Normal Neurological Exam: Normal Psychological Exam: Normal Skin Exam: Normal Course/Dx - Course Course Of Treatment: pt has no indication of a bacterial infection. pt encouraged to take tylenol and motrin for pain. pt encouraged to drink plenty of fluilds, theraflu and sudafed. - Differential Dx - Multi-Symptom Provider Diagnoses: upper respiratory infection - viral Discharge - Sign-Out/Discharge Documenting (check all that apply): Patient Departure All imaging exams completed and their final reports reviewed: No Studies - Discharge Plan Condition: Stable Disposition: HOME Patient Education Materials: Upper Respiratory Infection (ED) Referrals: Dottie Connor MD [Primary Care Provider] - Additional Instructions: Drink plenty of fluids. take tylenol and motrin for pain, discomfort or fever. take theraflu or sudafed for your symptoms. return if worse or any new symptoms. - Billing Disposition and Condition Condition: STABLE Disposition: Home
== END 2018-01-04 17:57 | disposition home or self-care (01) ==
LOC: UCCORT 16:15
DX: J06.9 Acute upper respiratory infection, unspecified (principal); Z87.891 Personal history of nicotine dependence
CPT/HCPCS: 99211; G0463

== ENCOUNTER 2018-08-12 16:01 | Emergency (ER) | payer OTHER ==
--- OUTSIDE RECORDS SUMMARY | 2018-08-12 16:23 | XMS REPORT | Continuity of Care Document ---
:1970 External Reference #:[id number] Author Name Lianne Snyder Care Team Providers Name Role Phone Sarika Gibson Care Team Information Still Operator Unavailable Dottie Connor MD Primary Care Physician Unavailable Payers Date Identification Numbers Payment Provider Subscriber Policy Number: [id number] [facility] Carol Gabriel PayID: [id number] [address] [place] [address] Advance Directives Description No Information Available Problems Description No Information Family History Date Family Member(s) Observation Comments Father Age is Unknown Father Unknown Mother due to fluid in lung () - age 68 First Brother 50 First Brother No Current Problems First Sister 47 First Sister No Current Problems Second Sister 41 Second Sister No Current Problems Social History Type Date Description Comments Sex Unknown Tobacco Use Start: Unknown End: Unknown Former Cigarette Smoker ETOH Use Rare Use Of Alcohol Recreational Drug Use Denies Drug Use Allergies, Adverse Reactions, Alerts Active Allergies Reaction Severity Comments Date Cats 03/07/2018 Dust 03/07/2018 Hay Fever 03/07/2018 Matt Grass Pollen Extract 03/07/2018 Bee Sting 03/07/2018 Grass 03/07/2018 Percocet nausea, vomiting 07/18/2018 Medications Active Medications SIG Qnty Indications Ordering Provider Date Fexofenadine HCL 1 by mouth 90tabs Getachew Reyna, 04/28/2018 180mg every day M.D. Tablets Ranitidine HCL 1 by mouth 120tabs Getachew Reyna, 03/07/2018 150mg Twice every day M.D. Tablets Samira Allergy 1 by mouth Unknown 180mg every day as Tablets needed History Medications Tramadol HCL 1-2. tab q4h. for 20tabs Getachew Reyna, 07/18/2018 - 50mg pain M.D. 07/25/2018 Tablets Zofran every 6 hours as 20tabs Getachew Reyna, 07/18/2018 - 4mg Tablets needed nausea M.D. 07/25/2018 Fluticasone 2 sprays both 32gm Getachew Reyna, 03/07/2018 - Propionate nostrils every day M.D. 07/11/2018 50mcg/Act Suspension Zantac 75 1 tab by mouth Unknown - 75mg Tablets once a day 03/07/2018 Immunizations Description No Information Available Vital Signs Date Vital Result Comment 08/03/2018 9:24am Weight 156.00 lb Height 61 inches 5'1" BMI (Body Mass Index) 29.5 kg/m2 BP Systolic 142 mmHg BP Diastolic 87 mmHg Heart Rate 92 /min O2 % BldC Oximetry 99 % Body Temperature 97.3 F Pain Level 5 07/26/2018 10:48am Weight 157.00 lb Height 61 inches 5'1" BMI (Body Mass Index) 29.7 kg/m2 BP Systolic 108 mmHg BP Diastolic 70 mmHg Heart Rate 92 /min O2 % BldC Oximetry 99 % Body Temperature 98.1 F Pain Level 2 03/07/2018 9:27am Weight 163.00 lb Height 61 inches 5'1" BMI (Body Mass Index) 30.8 kg/m2 BP Systolic 125 mmHg BP Diastolic 84 mmHg Heart Rate 95 /min O2 % BldC Oximetry 99 % Body Temperature 98.6 F Petersham Score 8 Neck Circumference in inches 13.5 Pain Level 0 Results Description No Information Available Procedures Date Code Description Status 04/06/2018 46718 Sleep Study, Simultaneous Recording Of Completed Ventilation,Unattended 03/18/2018 24498 Cat Scan Maxillofacial W/O Contrast,computed tomography Completed 03/18/2018 15553 Cat Scan Maxillofacial W/O Contrast,computed tomography Completed 03/18/2018 03180 Cat Scan Maxillofacial W/O Contrast,computed tomography Completed 03/07/2018 67668 Nasal Endoscopy, Diag. Completed Encounters Type Date Location Provider Dx Diagnosis Office Visit 03/07/2018 Main Office Getachew Reyna M.D. K21.9 Gastro- esophageal 9:45a reflux disease without esophagitis J34.2 Deviated nasal septum J34.3 Hypertrophy of nasal turbinates R06.83 Snoring G47.9 Sleep disorder, unspecified Plan of Treatment Future Appointment(s):10/27/2018 10:45 am - Isela Helton NP at Main Office
--- OUTSIDE RECORDS SUMMARY | 2018-08-12 16:23 | XMS REPORT | Continuity of Care Document ---
:1970 External Reference #:[id number] Author Name Ame Bush Care Team Providers Name Role Phone Sarika Gibson Care Team Information Engineering Assistant Unavailable Dottie Connor MD Primary Care Physician Unavailable Payers Date Identification Numbers Payment Provider Subscriber Policy Number: [id number] [facility] Carol Gabriel PayID: [id number] [address] [place] [address] Advance Directives Description No Information Available Problems [...] Available Vital Signs Date Vital Result Comment 07/26/2018 10:48am Weight 157.00 lb Height 61 [...] Oximetry 99 % Body Temperature 98.6 F Yawkey Score 8 Neck Circumference in inches 13.5 Pain Level 0 Results Description No Information Available Procedures Date Code Description Status 04/06/2018 16422 Sleep Study, Simultaneous Recording Of Completed Ventilation,Unattended 03/18/2018 61234 Cat Scan Maxillofacial W/O Contrast,computed tomography Completed 03/18/2018 62681 Cat Scan Maxillofacial W/O Contrast,computed tomography Completed 03/18/2018 94355 Cat Scan Maxillofacial W/O Contrast,computed tomography Completed 03/07/2018 37881 Nasal Endoscopy, Diag. Completed Encounters Type Date Location Provider Dx Diagnosis Office Visit 03/07/2018 Main Office Getachew Reyna M.D. K21.9 Gastro- esophageal 9:45a reflux disease without esophagitis J34.2 Deviated nasal septum J34.3 Hypertrophy of nasal turbinates R06.83 Snoring G47.9 Sleep disorder, unspecified Plan of Treatment No Information Available
--- OUTSIDE RECORDS SUMMARY | 2018-08-12 16:23 | XMS REPORT | Continuity of Care Document ---
:1970 External Reference #:[id number] Author Name Isela Helton NP Address [address] [facility] [place] [address] Care Team Providers Name Role Phone Sarika Gibson Care Team Information Carpet Repairer Unavailable Dottie Connor MD Primary Care Physician Unavailable Payers Date Identification Numbers Payment Provider Subscriber Policy Number: [id number] [facility] Carol Gabriel PayID: [id number] [address] [place] [address] Advance Directives Description No Information Available Problems [...] Medications SIG Qnty Indications Ordering Provider Date Prednisone 1 by mouth every 5tabs Getachew Reyna, 08/03/2018 10mg Tablets morning M.D. Fexofenadine HCL 1 by mouth every 90tabs Getachew Reyna, 04/28/2018 180mg day M.D. Tablets Ranitidine HCL 1 by mouth Twice 120tabs Getachew Reyna, 03/07/2018 150mg every day M.D. Tablets Samira Allergy 1 by mouth every Unknown 180mg day as needed Tablets History Medications Tramadol HCL 1-2. tab q4h. for 20tabs Reyna Getachew, 07/18/2018 - 50mg pain M.D. 07/25/2018 Tablets Zofran every 6 hours as 20tabs Axel Getachew, 07/18/2018 - 4mg Tablets needed nausea M.D. [...] Oximetry 99 % Body Temperature 98.6 F Hawthorne Score 8 Neck Circumference in inches 13.5 Pain Level 0 Results Description No Information Available Procedures Date Code Description Status 08/03/2018 78674 Nasal Endoscopy, Diag. Completed 04/06/2018 79207 Sleep Study, Simultaneous Recording Of Completed Ventilation,Unattended 03/18/2018 39502 Cat Scan Maxillofacial W/O Contrast,computed tomography Completed 03/18/2018 49551 Cat Scan Maxillofacial W/O Contrast,computed tomography Completed 03/18/2018 86967 Cat Scan Maxillofacial W/O Contrast,computed tomography Completed 03/07/2018 19395 Nasal Endoscopy, Diag. Completed Encounters Type Date Location Provider Dx Diagnosis Office Visit 03/07/2018 Main Office Getachew Reyna M.D. K21.9 Gastro- esophageal 9:45a reflux disease without esophagitis J34.2 Deviated nasal septum J34.3 Hypertrophy of nasal turbinates R06.83 Snoring G47.9 Sleep disorder, unspecified Plan of Treatment Future Appointment(s):10/27/2018 10:45 am - Isela Helton NP at Main Office
[2018-08-12 16:30] VITALS: BP 128/82
--- NOTE | 2018-08-12 17:09 | UC ---
Throat Pain/Nasal Chip HPI - HPI Summary HPI Summary: 48-year-old female presents with onset of a scratchy throat 3 days ago. States she had sinus surgery by Dr. Reyna on 07/18/2018. She contacted his office yesterday and they recommended she take an mjlf-iul-qrlzfsi allergy medication for some postnasal drip. States she has been taking this as well as doing saltwater gargles, Chloraseptic spray, Cepacol lozenges, and lmny-chy-ycpafhv ibuprofen with no relief in symptoms. She has also noted an occasional cough that is productive for green sputum. Denies fever, chills, ear pain, dysphagia , shortness of breath, chest pain, abdominal pain, nausea, or vomiting. - History of Current Complaint Chief Complaint: UCGeneralIllness Stated Complaint: SCRATCHY THROAT Time Seen by Provider: 08/12/18 16:53 Hx Obtained From: Patient Hx Last Menstrual Period: last D&C 04/2017 Pain Intensity: 12 - Allergies/Home Medications Allergies/Adverse Reactions: Allergies Allergy/AdvReac Type Severity Reaction Status Date / Time bee venom protein (honey bee) Allergy Anaphylatic Verified 01/04/18 17:15 Shock PMH/Surg Hx/FS Hx/Imm Hx Previously Healthy: Yes GI/ History: Gastroesophageal Reflux - Surgical History Surgical History: Yes Surgery Procedure, Year, and Place: Sinus surgery 07/18/2018 (Axel). 03/2016-d& c. 04/14/17--D&C. CERVICAL BX X 3--03/2017. hysterectomy 11/2017 - Family History Known Family History: Positive: Hypertension - Social History Occupation: Employed Full-time Lives: Alone Alcohol Use: Rare Substance Use Type: None Smoking Status (MU): Former Smoker When Did the Patient Quit Smoking/Using Tobacco: 1994 - Immunization History Most Recent Influenza Vaccination: 12/2016 Review of Systems All Other Systems Reviewed And Are Negative: Yes Constitutional: Negative: Fever, Chills Skin: Negative: Rash Eyes: Negative: Drainage, Eye Redness ENT: Positive: Sore Throat, Nasal Discharge, Sinus Congestion. Negative: Ear Ache, Sinus Pain/Tenderness Respiratory: Positive: Cough. Negative: Shortness Of Breath Cardiovascular: Negative: Palpitations, Chest Pain Gastrointestinal: Negative: Abdominal Pain, Vomiting, Diarrhea, Nausea Genitourinary: Positive: Negative Musculoskeletal: Positive: Negative Neurological: Positive: Negative Physical Exam - Summary Physical Exam Summary: GENERAL APPEARANCE: Well developed, well nourished, alert and cooperative, and appears to be in no acute distress. EYES: Conjunctiva clear. No drainage. EARS: External auditory canals and tympanic membranes clear, hearing grossly intact. NOSE: Mild nasal congestion without nasal discharge. THROAT: Pharyngeal cobblestoning. No tonsilar inflammation, swelling, exudate, or lesions. Uvula midline. NECK: Neck supple, non-tender without lymphadenopathy. CARDIAC: Normal S1 and S2. No S3, S4 or murmurs. Rhythm is regular. There is no peripheral edema, cyanosis or pallor. Extremities are warm and well perfused. Capillary refill is less than 2 seconds. Peripheral pulses intact. LUNGS: Clear to auscultation without rales, rhonchi, wheezing or diminished breath sounds. Non-productive cough ABDOMEN: Positive bowel sounds. Soft, nondistended, nontender. No guarding or rebound. No masses or hepatosplenomegally. MUSKULOSKELETAL: ROM intact to all extremities. No joint erythema or tenderness. Normal muscular development. Normal gait. SKIN: Skin normal color, texture and turgor with no lesions or eruptions. Triage Information Reviewed: Yes Vital Signs: Initial Vital Signs Temp 97.9 F 08/12/18 16:23 Pulse 96 08/12/18 16:23 Resp 18 08/12/18 16:23 BP 128/82 08/12/18 16:23 Pulse Ox 97 08/12/18 16:23 Vital Signs Reviewed: Yes Throat Pain/Nasal Course/Dx - Course Course Of Treatment: 48-year-old female presents with onset of a scratchy throat 3 days ago. States she had sinus surgery by Dr. Reyna on 07/18/2018. She contacted his office yesterday and they recommended she take an uica-uxl-kgrqlsa allergy medication for some postnasal drip. States she has been taking this as well as doing saltwater gargles, Chloraseptic spray, Cepacol lozenges, and btps-iyl-yxyqbon ibuprofen with no relief in symptoms. She has also noted an occasional cough that is productive for green sputum. Denies fever, chills, ear pain, dysphagia , shortness of breath, chest pain, abdominal pain, nausea, or vomiting. Afebrile. Vital signs stable. Exam revealed some mild nasal congestion, pharyngeal cobblestoning, and a nonproductive cough and otherwise was unremarkable. Discussed with patient that her symptoms are consistent with a pharyngitis secondary to some postnasal drip likely from a viral infection since her symptoms have not been responding to the allergy medications. Patient states that she has tried using steroid nasal sprays and saline nasal rinses in the past and is unable to tolerate. I'm recommending that she continue using the allergy medication as recommended by Dr. Reyna, continued symptomatic treatment, and I will provide her with a prescription for Tessalon Perles 1 capsule every hours as needed for her cough. She is to follow-up with Dr. Reyna's office in 3-5 days if symptoms continue to persist. Anticipatory guidance and warning symptoms are reviewed with the patient. Verbalizes understanding and agrees with plan of care. - Differential Dx/Diagnosis Differential Diagnosis/HQI/PQRI: Pharyngitis, Tonsillitis, URI Provider Diagnosis: Pharyngitis Discharge - Sign-Out/Discharge Documenting (check all that apply): Patient Departure All imaging exams completed and their final reports reviewed: No Studies - Discharge Plan Condition: Stable Disposition: HOME Prescriptions: Benzonatate CAP* [Tessalon 100 MG CAP*] 100 mg PO TID PRN #30 cap PRN Reason: Cough Patient Education Materials: Pharyngitis (ED) Referrals: Dottie Connor MD [Primary Care Provider] - Additional Instructions: Your rapid strep test in the clinic today was negative. Your symptoms are likely from some postnasal drip from a viral infection. Viral infections do not respond to antibiotics and are limited to the treatment of symptoms. Viral infections typically run their course in 7-10 days. Drink plenty of fluids to avoid dehydration especially if you are running any fever. Use salt water gargles several times a day. Continue to use an over the counter acetaminophen (Tylenol) or ibuprofen (Advil , Motrin) according to directions as needed for pain or fever. Take Tessalon Perles 1 capsule every 8 hours as needed for cough. Follow up with Dr. Reyna in 3-5 days especially if symptoms persist. Seek immediate medical attention in the emergency room if you have fever greater than 100.5 F despite taking acetaminophen or ibuprofen, are unable to swallow or develop drooling, are unable to open your mouth fully, are unable to eat or drink, or have any difficulty breathing. - Barrying Disposition and Condition Condition: STABLE Disposition: Home
== END 2018-08-12 17:16 | disposition home or self-care (01) ==
LOC: UCCORT 16:01
DX: J02.9 Acute pharyngitis, unspecified (principal); K21.9 Gastro-esophageal reflux disease without esophagitis; Z87.891 Personal history of nicotine dependence; Z91.030 Bee allergy status
CPT/HCPCS: 87651; 99212; G0463

== ENCOUNTER 2018-09-13 16:04 | Emergency (ER) | payer OTHER ==
--- OUTSIDE RECORDS SUMMARY | 2018-09-13 16:20 | XMS REPORT | Continuity of Care Document ---
:1970 External Reference #:[id number] Author Name Getachew Reyna M.D. Address [address] [place] [address] Care Team Providers Name Role Phone Sarika Gibson Care Team Information Extension Course Coordinator Unavailable Dottie Connor MD Primary Care Physician Unavailable Payers Date Identification Numbers Payment Provider Subscriber Policy Number: [id number] [facility] Carol Gabriel PayID: [id number] [address] [place] [address] Family History Date Family Member(s) Observation Comments [...] Medications SIG Qnty Indications Ordering Provider Date Amoxicillin twice a day 1 14tabs Getachew Reyna, 08/16/2018 875mg Tablets week M.D. Dexamethasone one tab daily 3tabs Getachew Reyna, 08/16/2018 4mg Tablets for 3 days M.D. Fexofenadine HCL 1 by mouth 90tabs Getachew Reyna, 04/28/2018 180mg every day M.D. Tablets Ranitidine HCL 1 by mouth 120tabs Getachew Reyna, 03/07/2018 150mg Twice every day M.D. Tablets Samira Allergy 1 by mouth Unknown 180mg every day as Tablets needed History Medications Prednisone 1 by mouth every 5tabs ReynaJustenoj, 08/03/2018 - 10mg Tablets morning M.D. 08/16/2018 Tramadol HCL 1-2. tab q4h. for 20tabs Getachew Reyna, 07/18/2018 - 50mg pain M.D. 07/25/2018 Tablets Zofran every 6 hours as 20tabs Getachew Reyna, 07/18/2018 - 4mg Tablets needed nausea M.D. 07/25/2018 Fluticasone 2 sprays both 32gm Getachew Reyna, 03/07/2018 - Propionate nostrils every day M.D. 07/11/2018 50mcg/Act Suspension Zantac 75 1 tab by mouth Unknown - 75mg Tablets once a day 03/07/2018 Vital Signs Date Vital Result Comment 08/16/2018 4:20pm Weight 157.00 lb Height 61 inches 5'1" BMI (Body Mass Index) 29.7 kg/m2 BP Systolic 152 mmHg BP Diastolic 84 mmHg Heart Rate 98 /min O2 % BldC Oximetry 100 % Body Temperature 97.6 F Pain Level 8 08/03/2018 9:24am Weight 156.00 lb Height 61 [...] Oximetry 99 % Body Temperature 98.6 F Lima Score 8 Neck Circumference in inches 13.5 Pain Level 0 Procedures Date Code Description Status 08/03/2018 28228 Nasal Endoscopy, Diag. Completed 04/06/2018 43108 Sleep Study, Simultaneous Recording Of Completed Ventilation,Unattended 03/18/2018 14587 Cat Scan Maxillofacial W/O Contrast,computed tomography Completed 03/18/2018 49490 Cat Scan Maxillofacial W/O Contrast,computed tomography Completed 03/18/2018 28439 Cat Scan Maxillofacial W/O Contrast,computed tomography Completed 03/07/2018 93266 Nasal Endoscopy, Diag. Completed Encounters Type Date Location Provider Dx Diagnosis Office Visit 03/07/2018 Main Office Getachew Reyna M.D. K21.9 Gastro- esophageal 9:45a reflux disease without esophagitis J34.2 Deviated nasal septum J34.3 Hypertrophy of nasal turbinates R06.83 Snoring G47.9 Sleep disorder, unspecified Plan of Treatment Future Appointment(s):10/27/2018 10:45 am - Isela Helton NP at Main Office
--- OUTSIDE RECORDS SUMMARY | 2018-09-13 16:20 | XMS REPORT | Continuity of Care Document ---
:1970 External Reference #:[id number] Author Name Lianne Snyder Care Team Providers Name Role Phone Sarika Gibson Care Team Information Space Control Agent Unavailable Dottie Connor MD Primary Care Physician Unavailable Payers Date Identification Numbers Payment Provider Subscriber Policy Number: [id number] [facility] Carol Gabriel PayID: [id number] [address] [place] [address] Family History Date Family Member(s) Observation Comments [...] Medications Prednisone 1 by mouth every 5tabs Getachew Reyna, 08/03/2018 - 10mg Tablets morning M.D. 08/16/2018 Tramadol HCL 1-2. tab q4h. for 20tabs Getachew Reyna, 07/18/2018 - 50mg pain M.D. 07/25/2018 Tablets Zofran every 6 hours as 20tabs Getachew Reyna, 07/18/2018 - 4mg Tablets needed nausea M.D. 07/25/2018 Fluticasone 2 sprays both 32gm Tita Reynaj, 03/07/2018 - Propionate nostrils every day M.D. [...] Oximetry 99 % Body Temperature 98.6 F Jud Score 8 Neck Circumference in inches 13.5 Pain Level 0 Procedures Date Code Description Status 08/03/2018 84402 Nasal Endoscopy, Diag. Completed 04/06/2018 38519 Sleep Study, Simultaneous Recording Of Completed Ventilation,Unattended 03/18/2018 85011 Cat Scan Maxillofacial W/O Contrast,computed tomography Completed 03/18/2018 15149 Cat Scan Maxillofacial W/O Contrast,computed tomography Completed 03/18/2018 62405 Cat Scan Maxillofacial W/O Contrast,computed tomography Completed 03/07/2018 29594 Nasal Endoscopy, Diag. Completed Encounters Type Date Location Provider Dx Diagnosis Office Visit 03/07/2018 Main Office Getachew Reyna M.D. K21.9 Gastro- esophageal 9:45a reflux disease without esophagitis J34.2 Deviated nasal septum J34.3 Hypertrophy of nasal turbinates R06.83 Snoring G47.9 Sleep disorder, unspecified Plan of Treatment Future Appointment(s):10/27/2018 10:45 am - Isela Helton NP at Main Office
[2018-09-13 17:04] VITALS: BP 130/73
--- NOTE | 2018-09-13 17:58 | UC ---
Skin Complaint HPI - HPI Summary HPI Summary: 48 y/o female presents to the urgent care c/o she noticed a possible insect bite in the RT side of forehead when she woke up Wednesday09/11/2018. It felt like a tingle sensation through out the day. Yesterday she noticed more redness and mild swelling w/ some blisters moving toward her RT eyebrow. It is tender to touch is 3/10. Pt has not taken anything for pain, and denies fever, URI, SOB, chest pain, abdominal pain, N/V/D. - History of Current Complaint Chief Complaint: UCSkin Time Seen by Provider: 09/13/18 17:57 Stated Complaint: LEFT EYEBROW SKIN CONCERN Hx Obtained From: Patient Hx Last Menstrual Period: last D&C 04/2017 ?: No Onset/Duration: Gradual Onset, Lasting Days - 2 days, Still Present, Worse Since - today Skin Exposure Onset/Duration: Days Ago - 4 days ago Timing: Constant Onset Severity: Mild Current Severity: Mild Pain Intensity: 3 Pain Scale Used: 0-10 Numeric Location: Discrete - RT side of forehead Character: Redness, Raised, Painful Alleviating Factor(s): OTC Meds Associated Signs & Symptoms: Positive: Rash - painful rash in the RT side of forehead, Tenderness. Negative: Fever, Chills, Drainage Related History: Other: - chicken pox as a child - Allergy/Home Medications Allergies/Adverse Reactions: Allergies Allergy/AdvReac Type Severity Reaction Status Date / Time bee venom protein (honey bee) Allergy Anaphylatic Verified 01/04/18 17:15 Shock Home Medications: Home Medications Fexofenadine/Pseudoephedrine [Samira-D 24 Hour Tablet] 1 each PO DAILY [History Confirmed 09/13/18] PMH/Surg Hx/FS Hx/Imm Hx - Surgical History Surgical History: Yes Surgery Procedure, Year, and Place: 03/2016-d&c. 04/14/17--D&C. CERVICAL BX X 3 --03/2017. hysterectomy 11/2017. sinus surgery 07/2018 - Family History Known Family History: Positive: Hypertension - Social History Alcohol Use: Occasionally Substance Use Type: None Smoking Status (MU): Former Smoker When Did the Patient Quit Smoking/Using Tobacco: 1994 - Immunization History Most Recent Influenza Vaccination: 12/2016 Review of Systems All Other Systems Reviewed And Are Negative: Yes Constitutional: Positive: Negative Skin: Positive: Rash - RT side of forehead w/ painful rash Eyes: Positive: Negative ENT: Positive: Negative Respiratory: Positive: Negative Cardiovascular: Positive: Negative Gastrointestinal: Positive: Negative Genitourinary: Positive: Negative Motor: Positive: Negative Neurovascular: Positive: Negative Musculoskeletal: Positive: Negative Neurological: Positive: Negative Psychological: Positive: Negative Is Patient Immunocompromised?: No Physical Exam - Summary Physical Exam Summary: Vital Signs Reviewed: Yes General: well appearing, well nourished female in no acute apparent pain distress, sitting comfortably on examining table Eye Exam: Normal Eyes: Positive: Conjunctiva Clear - PERRLA< EOMI, fundi grossly normal ENT: Positive: Normal ENT inspection, Hearing grossly normal, Pharynx normal, TMs normal Neck: Positive: Supple, Nontender, No Lymphadenopathy Respiratory: Positive: Chest non-tender, Lungs clear, Normal breath sounds, No respiratory distress Cardiovascular: Positive: RRR, No Murmur, Pulses Normal, Brisk Capillary Refill Abdomen Description: Positive: Nontender, No Organomegaly, Soft. Negative: CVA Tenderness (R), CVA Tenderness (L) Bowel Sounds: Positive: Present Musculoskeletal: Positive: Strength Intact, ROM Intact, No Edema Neurological: Positive: Alert, Muscle Tone Normal Psychological Exam: Normal Skin: Positive: Positive mild erythematous maculopapular eruption, some papule with clear vesicles. located in the Right side of forehead in a dermatomal distribution which stops at RT eyebrow, no involvment of the upper eyelid or eye. mild tenderness to palpation, no swelling observed. Triage Information Reviewed: Yes Vital Signs: Initial Vital Signs Temp 98.0 F 09/13/18 17:00 Pulse 83 09/13/18 17:00 Resp 15 09/13/18 17:00 BP 130/73 09/13/18 17:00 Pulse Ox 100 09/13/18 17:00 Course/Dx - Course Course Of Treatment: 48 y/o female presents to the urgent care c/o she noticed a possible insect bite in the RT side of forehead when she woke up Wednesday09/11/2018. It felt like a tingle sensation through out the day. Yesterday she noticed more redness and mild swelling w/ some blisters moving toward her RT eyebrow. It is tender to touch is 3/10. Pt has not taken anything for pain, and denies fever, URI, SOB, chest pain, abdominal pain, N/V/D. Hx obtained. Pt with possible Herpes Zoster on the RT side of forehead, w/ no involvement of the left eye on examination. Pt Rx valtrex and Ibuprofen PO to alleviate symptoms. Pt advised if not improvement or worsening of symptoms to return to the clinic or f/u with PCP for further treatment.PT understood and agreed with D/C instructions - Differential Diagnoses - Skin Complaint Differential Diagnoses: Abscess, Cellulitis, Contact Dermatitis, MRSA, Tick Born Illness, Urticaria, Varicella Zoster, Other - bee sting, insect bite - Diagnoses Provider Diagnosis: Herpes zoster Discharge - Sign-Out/Discharge Documenting (check all that apply): Patient Departure - D/C home All imaging exams completed and their final reports reviewed: No Studies - Discharge Plan Condition: Stable Disposition: HOME Prescriptions: Calamine/Pramoxine LOTION* [Caladryl LOTION*] 1 applic .SEE ORDER BID #1 btl ValACYclovir (*) [Valtrex 1 GM(*)] 1 gm PO TID PC #21 tab Patient Education Materials: Shingles (ED) Referrals: Dottie Connor MD [Primary Care Provider] - 3 Days Additional Instructions: 1-Please take full course of Valtrex PO as directed below. 2- Please apply Caladryl lotion over the rash to alleviate symptoms. 3-Please continue taken Ibuprofen PO q6-8hrs prn to alleviate pain 4- If rash worsesn and spreads over your left eye please f/u w/ [employer] special education teacher DR Mcintosh immediately for further management - Billing Disposition and Condition Condition: STABLE Disposition: Home
== END 2018-09-13 18:21 | disposition home or self-care (01) ==
LOC: UCCORT 16:04
DX: B02.9 Zoster without complications (principal); Z87.891 Personal history of nicotine dependence
CPT/HCPCS: 99212; G0463

== ENCOUNTER 2019-02-22 15:57 | Emergency (ER) | payer OTHER ==
--- NOTE | 2019-02-22 17:39 | UC ---
Knee Pain HPI - HPI Summary HPI Summary: 48-year-old female comes in with a chief complaint of bilateral knee pain after sustaining a fall yesterday February 21, 2019 at work. 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 Pain is worse in the medial anterior portions of both knees. She has been able to walk. She reports that she's had prior injury of the left knee with torn meniscus and also a damaged ACL. Pain is worse with activity and motion and palpation. She has taken some anti-inflammatories which to help with the pain some. - History of Current Complaint Chief Complaint: UCLowerExtremity Stated Complaint: BILATERAL KNEE PAIN-WC Time Seen by Provider: 02/22/19 17:19 Hx Last Menstrual Period: last D&C 04/2017 Pain Intensity: 6 - Allergies/Home Medications Allergies/Adverse Reactions: Allergies Allergy/AdvReac Type Severity Reaction Status Date / Time bee venom protein (honey bee) Allergy Anaphylatic Verified 02/22/19 16:41 Shock Home Medications: Home Medications Fluticasone NASAL SPRAY 50MCG* [Flonase NASAL SPRAY 50MCG*] 2 spray BOTH NARES DAILY 02/22/19 [History Confirmed 02/22/19] Loratadine [Claritin] 10 mg PO DAILY 02/22/19 [History Confirmed 02/22/19] Montelukast Sodium TAB* [Singulair TAB*] 10 mg PO DAILY 02/22/19 [History Confirmed 02/22/19] Ranitidine TAB (NF) [Zantac TAB (NF)] 150 mg PO BID 02/22/19 [History Confirmed 02/22/19] PMH/Surg Hx/FS Hx/Imm Hx Previously Healthy: Yes Respiratory History: Asthma - Surgical History Surgical History: Yes Surgery Procedure, Year, and Place: 03/2016-d&c. 04/14/17--D&C. CERVICAL BX X 3 --03/2017. hysterectomy 11/2017. sinus surgery 07/2018 - Family History Known Family History: Positive: Hypertension - Social History Alcohol Use: Occasionally Substance Use Type: None Smoking Status (MU): Former Smoker When Did the Patient Quit Smoking/Using Tobacco: 24 years ago - Immunization History Most Recent Influenza Vaccination: 12/2016 Review of Systems All Other Systems Reviewed And Are Negative: Yes Constitutional: Positive: Negative Skin: Positive: Negative Eyes: Positive: Negative ENT: Positive: Negative Respiratory: Positive: Negative Cardiovascular: Positive: Negative Gastrointestinal: Positive: Negative Motor: Positive: Negative Neurovascular: Positive: Negative Musculoskeletal: Positive: Other: - see hpi Neurological: Positive: Negative Psychological: Positive: Negative Is Patient Immunocompromised?: No Physical Exam Triage Information Reviewed: Yes Appearance: Well-Appearing, Well-Nourished, Pain Distress - mild with knee exam Vital Signs: Initial Vital Signs Temp 98.5 F 02/22/19 16:37 Pulse 90 02/22/19 16:37 Resp 18 02/22/19 16:37 BP 150/98 02/22/19 16:37 Pulse Ox 100 02/22/19 16:37 Vital Signs Reviewed: Yes Eye Exam: Normal Eyes: Positive: Conjunctiva Clear Neck: Positive: Supple Respiratory: Positive: No respiratory distress Musculoskeletal: Positive: Other: - Bilateral knees are most tender in the medial aspect. We are also tender with movement of the patella and in the popliteal areas. Patient does report pain with any movement of the knees to include bilateral Gabriela's. She feels like the left knee is unstable she does report that's chronic. Neurological: Positive: Alert Psychological: Positive: Age Appropriate Behavior Skin Exam: Normal Knee Pain Course/Dx - Course Course Of Treatment: . I discussed the x-rays with the patient. I do not see any fracture. Radiologist reading pending. And clinic patient had Regulo wraps placed on both knees by nursing patient neurovascular intact after placement of Regulo wrap's. She declined crutches. Plan is ice anti-inflammatories and follow up with either occupational medicine sports medicine or orthopedics if not completely improved. Patient declines any time off of work at this time. - Differential Dx/Diagnosis Provider Diagnosis: Knee pain, bilateral Discharge ED - Sign-Out/Discharge Documenting (check all that apply): Patient Departure All imaging exams completed and their final reports reviewed: No - Discharge Plan Condition: Stable Disposition: HOME Patient Education Materials: Knee Pain (ED) Referrals: Dottie Connor MD [Primary Care Provider] - Boni Ramos MD [Medical Doctor] - Misael Raygoza MD [Medical Doctor] - [facility] [Provider Group] Additional Instructions: FOLLOW UP WITH DR RAMOS, OCCUPATIONAL MEDICINE, DR RAYGOZA, ORTHOPEDICS, OR SPORTS MEDICINE IF NOT COMPLETELY IMPROVED. GET REEVALUATED SOONER IF NOT IMPROVING OR WORSE OR ANY QUESTIONS OR CONCERNS. - Billing Disposition and Condition Condition: STABLE Disposition: Home
[2019-02-22 19:17] VITALS: BP 137/83
--- NOTE | 2019-02-23 12:19 | UC ---
- Progress Note Progress Note: No change in plan based on review of xray. Wet read negative for fracture. Patient Name: YULIYA ABAD Medical Record#: [id number] Ordering Physician: Rex Pelaez MD Acct.#: [id number] : 1970 Age: 48 Sex: F Location: [facility] Exam Date: 02/22/19 172 ADM Status: DEP ER Order Information: KNEES BILATERAL Accession Number: [id number] CPT: 11661 INDICATION: Bilateral knee pain. TECHNIQUE: 4 views of both knees were obtained. FINDINGS: The soft tissues are unremarkable. The bone mineralization is within normal limits. No fracture is identified. Anatomic alignment is maintained. The joint spaces are preserved. IMPRESSION: NO FRACTURE IDENTIFIED. R0 Preliminary Imaging Read R0 <Electronically signed by Xavi Gu MD in OV> 02/23/19723 Dictated By: Xavi Gu MD Dictated Date/Time: 02/23/19722 Transcribed Date/Time: 02/23/19722 Copy to: CC:Dottie Connor MD; Rex Pelaez MD Imaging - [facility] Imaging - [facility] [address] [address] ph ([phone]) ph ([phone]) ph ([phone]) This report is only to be considered final once signed by the Provider(s) as displayed in the "<Electronically Signed by >" field (s). Absence of a signature indicates the report is in a draft status and still needs to be finalized. In the event this document was created by someone other than the signing Provider, the individual initiating the document will be listed in the "Entered by:" or "Dictated by:" stock. 1 of 1 Course/Dx - Diagnoses Provider Diagnoses: Knee pain, bilateral Discharge ED - Sign-Out/Discharge Documenting (check all that apply): Post-Discharge Follow Up All imaging exams completed and their final reports reviewed: Yes - Discharge Plan Condition: Stable Disposition: HOME Patient Education Materials: Knee Pain (ED) Referrals: [facility] [Provider Group] Misael Raygoza MD [Medical Doctor] - Boni Ramos MD [Medical Doctor] - Dottie Connor MD [Primary Care Provider] - Additional Instructions: FOLLOW UP WITH DR RAMOS, OCCUPATIONAL MEDICINE, DR RAYGOZA, ORTHOPEDICS, OR SPORTS MEDICINE IF NOT COMPLETELY IMPROVED. GET REEVALUATED SOONER IF NOT IMPROVING OR WORSE OR ANY QUESTIONS OR CONCERNS. - Billing Disposition and Condition Condition: STABLE Disposition: Home
== END 2019-02-22 19:17 | disposition home or self-care (01) ==
LOC: UCCORT 15:57
DX: M25.561 Pain in right knee (principal); M25.562 Pain in left knee; J45.909 Unspecified asthma, uncomplicated; Z91.030 Bee allergy status; Z87.891 Personal history of nicotine dependence
CPT/HCPCS: 99212; G0463